=== PATIENT | male | born 1960 | race Caucasian/White ===

== ENCOUNTER 2018-03-10 13:53 | Inpatient (IN) | payer BC ==
[2018-03-10] MEDS ORDERED: Sodium Chloride 0.9% 10 ML Syringe FLUSH PRN (14:41)
[2018-03-10] MEDS: Sodium Chloride 0.9% 1,000 ML IV SCH ×2 (14:57→23:00)
--- NOTE | 2018-03-10 14:59 | EDM.PDOC ---
ED HPI GENERAL MEDICAL PROBLEM - General Chief Complaint: Lower Extremity Injury/Pain Stated Complaint: POSS LEFT LEG INFECTION-SENT BY CHENG Time Seen by Provider: 03/10/18 14:18 Source of Information: Reports: Patient, Provider History Limitations: Reports: No Limitations - History of Present Illness INITIAL COMMENTS - FREE TEXT/NARRATIVE: The patient presents with left leg cellulitis. He said he noticed some pain in his left knee a couple days ago and now he has erythema and some mild edema to the left leg. He denies injuring his leg. He does have an old scab to his left knee. He has no fever or chills. He says he has no appetite. His blood sugar was 262 at the clinic. He has type II diabetes. He has some nausea but no vomiting. Onset: Gradual Duration: Day(s): Location: Reports: Lower Extremity, Left (Leg) Quality: Reports: Sharp Severity: Moderate Improves with: Reports: Immobilization Worsens with: Reports: Movement Associated Symptoms: Reports: Nausea/Vomiting. Denies: Confusion, Chest Pain, Cough, Fever/Chills, Headaches, Shortness of Breath Left Knee Pain Score (Numeric/FACES): 0 - Related Data Allergies Allergy/AdvReac Type Severity Reaction Status Date / Time Iodinated Contrast- Oral and Allergy Hives Verified 03/10/18 14:21 IV Dye Home Meds: Home Meds Aspirin [Halfprin] 81 mg PO DAILY 03/10/18 [History] Canagliflozin [Invokana] 300 mg PO DAILY 03/10/18 [History] Hydrochlorothiazide 12.5 mg PO DAILY 03/10/18 [History] Insulin Aspart [Novolog] 25 unit SQ TID 03/10/18 [History] Lisinopril 40 mg PO DAILY 03/10/18 [History] amLODIPine Besylate [Amlodipine Besylate] 5 mg PO DAILY 03/10/18 [History] metFORMIN [Glucophage] 500 mg PO BID 03/10/18 [History] Past Medical History Endocrine/Metabolic History: Reports: Diabetes, Type II - Past Surgical History GI Surgical History: Reports: Cholecystectomy Social & Family History - Family History Family Medical History: Noncontributory - Tobacco Use Smoking Status *Q: Never Smoker - Recreational Drug Use Recreational Drug Use: No Review of Systems - Review of Systems Review Of Systems: See Below Constitutional: Reports: No Symptoms Eyes: Reports: No Symptoms Ears: Reports: No Symptoms Nose: Reports: No Symptoms Mouth/Throat: Reports: No Symptoms Respiratory: Reports: No Symptoms Cardiovascular: Reports: No Symptoms GI/Abdominal: Reports: Nausea. Denies: Abdominal Pain, Vomiting Genitourinary: Reports: No Symptoms Musculoskeletal: Reports: Other (erythema and some mild edema) Skin: Reports: No Symptoms Neurological: Reports: No Symptoms Psychiatric: Reports: No Symptoms ED EXAM, GENERAL - Physical Exam Exam: See Below Exam Limited By: No Limitations General Appearance: Alert, No Apparent Distress Ears: Normal External Exam Nose: Normal Inspection Head: Atraumatic, Normocephalic Neck: Normal Inspection Respiratory/Chest: No Respiratory Distress, Lungs Clear, Normal Breath Sounds Cardiovascular: Regular Rate, Rhythm, No Edema, No Murmur GI/Abdominal: Soft, Non-Tender, No Organomegaly, No Mass Back Exam: Normal Inspection Extremities: Other (Erythema to the left leg with some edema. Good pulses and sensation distally.) Neurological: Alert, Oriented, No Motor/Sensory Deficits Course - Vital Signs Last Recorded V/S: Last Vital Signs Temp 98.7 F 03/10/18 14:17 Pulse 116 H 03/10/18 14:17 Resp 19 03/10/18 14:17 BP 153/96 H 03/10/18 14:17 Pulse Ox 95 03/10/18 14:17 - Orders/Labs/Meds Orders: Active Orders 24 hr Category Date Time Status Peripheral IV Care [RC] . DIRECTED Care 03/10/18 14:41 Active CULTURE BLOOD [BC] Stat Lab 03/10/18 14:53 Received CULTURE BLOOD [BC] Stat Lab 03/10/18 15:05 Received Sodium Chloride 0.9% [Normal Saline] 1,000 ml Med 03/10/18 14:45 Active IV ASDIRECTED Sodium Chloride 0.9% [Saline Flush] Med 03/10/18 14:41 Active 10 ml FLUSH ASDIRECTED PRN Blood Culture x2 Reflex Set [OM.PC] Stat Oth 03/10/18 14:42 Ordered Peripheral IV Insertion Adult [OM.PC] Routine Oth 03/10/18 14:41 Ordered Medication Orders Sodium Chloride (Normal Saline) 1,000 mls @ 125 mls/hr IV ASDIRECTED HERBERT Last Admin: 03/10/18 14:57 Dose: 125 mls/hr Sodium Chloride (Saline Flush) 10 ml FLUSH ASDIRECTED PRN PRN Reason: Keep Vein Open Last Admin: 03/10/18 14:58 Dose: 10 ml Labs: Laboratory Tests 03/10/18 Range/Units 14:53 C-Reactive Protein 27.0 H* (<1.0) mg/dL Meds: Medications Generic Name Dose Route Start Last Admin Trade Name Freq PRN Reason Stop Dose Admin Sodium Chloride 1,000 mls @ 125 mls/hr 03/10/18 14:45 03/10/18 14:57 Normal Saline IV 125 mls/hr ASDIRECTED HERBERT Administration Sodium Chloride 10 ml 03/10/18 14:41 03/10/18 14:58 Saline Flush FLUSH 10 ml ASDIRECTED PRN Administration Keep Vein Open Discontinued Medications Generic Name Dose Route Start Last Admin Trade Name Freq PRN Reason Stop Dose Admin Vancomycin HCl 2 gm/ Sodium 250 mls @ 250 mls/hr 03/10/18 15:03 03/10/18 15: 27 Chloride IV 03/10/18 16:02 250 mls/hr ONETIME ONE Administration - Re-Assessments/Exams Free Text/Narrative Re-Assessment/Exam: 03/10/18 15:32 I ordered an IV NS 125mL/hr, blood cultures and vancomycin 2 grams IV. His WBC was 14.8. His blood sugar was elevated at 262. His Na was 136. His total bili was elevated to 2. I feel he needs to be admitted. I called Dr Rubi and he agreed to the admission. He only meets for observation at this time. Departure - Departure Time of Disposition: 16:05 Disposition: Refer to Observation Condition: Good Clinical Impression: Cellulitis of left leg - Discharge Information Referrals: Alex Vela MD [Primary Care Provider] - Forms: ED Department Discharge - My Orders Last 24 Hours: My Active Orders 03/10/18 14:41 Peripheral IV Care [RC] . DIRECTED Sodium Chloride 0.9% [Saline Flush] 10 ml FLUSH ASDIRECTED PRN Peripheral IV Insertion Adult [OM.PC] Routine 03/10/18 14:42 Blood Culture x2 Reflex Set [OM.PC] Stat 03/10/18 14:45 Sodium Chloride 0.9% [Normal Saline] 1,000 ml IV ASDIRECTED 03/10/18 14:53 CULTURE BLOOD [BC] Stat 03/10/18 15:05 CULTURE BLOOD [BC] Stat - Assessment/Plan Last 24 Hours: My Active Orders 03/10/18 14:41 Peripheral IV Care [RC] . DIRECTED Sodium Chloride 0.9% [Saline Flush] 10 ml FLUSH ASDIRECTED PRN Peripheral IV Insertion Adult [OM.PC] Routine 03/10/18 14:42 Blood Culture x2 Reflex Set [OM.PC] Stat 03/10/18 14:45 Sodium Chloride 0.9% [Normal Saline] 1,000 ml IV ASDIRECTED 03/10/18 14:53 CULTURE BLOOD [BC] Stat 03/10/18 15:05 CULTURE BLOOD [BC] Stat
[2018-03-10] MEDS ORDERED: 50% Dextrose in Water 50 ML Syringe IVPUSH PRN (17:04)
[2018-03-10] MEDS ORDERED: Metoprolol Tartrate 5 MG/5 ML SDV IVPUSH PRN (17:07)
[2018-03-10] MEDS ORDERED: hydrALAZINE 20 MG/ML SDV IVPUSH PRN (17:07)
[2018-03-10] MEDS ORDERED: LORazepam 2 MG/ML SDV IVPUSH PRN (17:07)
--- NOTE | 2018-03-10 17:08 | PCM.HP ---
<Elyse Bernal - Last Filed: 03/10/18 18:12> H&P History of Present Illness - General Date of Service: 03/10/18 Admit Problem/Dx: Admission Diagnosis/Problem Admission Diagnosis/Problem Cellulitis Source of Information: Patient, Old Records, Provider History Limitations: Reports: No Limitations - History of Present Illness Initial Comments - Free Text/Narative: This is a 57 yo male with past medical hx/o HTN, DM2 who comes in for left leg cellulitis. Pain is 10/10 with movement only. He reports no chills, headache, nausea, vomiting, diarrhea, chest pain, shortness of breath, or GI/ complaints. He currently has a fever of 101.5F. His symptoms slightly improved after receiving fluids and IV Vanco in the ED. His initial workup in the ED showed a CBC remarkable for WBC of 14.8 and blood glucose 262. His chemistry is remarkable for Na 136, Bilirubin 2, CRP 27. He is subsequently admitted to the medical floor for observation. He is a full code. His PCP is Dr. Alex Vela. Left Knee Pain Score (Numeric/FACES): 0 - Related Data Allergies/Adverse Reactions: Allergies Allergy/AdvReac Type Severity Reaction Status Date / Time Iodinated Contrast- Oral and Allergy Hives Verified 03/10/18 17:12 IV Dye Home Medications: Home Meds Aspirin [Halfprin] 81 mg PO DAILY 03/10/18 [History] Canagliflozin [Invokana] 300 mg PO ACBREAKFAST 03/10/18 [History] Hydrochlorothiazide 12.5 mg PO DAILY 03/10/18 [History] Insulin Aspart [Novolog Flexpen] 0 units SQ TIDMEALS 03/10/18 [History] Insulin Aspart [Novolog] 20 unit SQ TIDMEALS 03/10/18 [History] Insulin Glargine,Hum.Rec.Anlog [Toujeo Solostar] 70 units SQ DAILY 03/10/18 [ History] Lisinopril 40 mg PO DAILY 03/10/18 [History] amLODIPine Besylate [Amlodipine Besylate] 5 mg PO DAILY 03/10/18 [History] metFORMIN [Glucophage] 500 mg PO BID 03/10/18 [History] Past Medical History Endocrine/Metabolic History: Reports: Diabetes, Type II - Past Surgical History GI Surgical History: Reports: Cholecystectomy Social & Family History - Family History Family Medical History: Noncontributory - Tobacco Use Smoking Status *Q: Never Smoker - Recreational Drug Use Recreational Drug Use: No H&P Review of Systems - Review of Systems: Review Of Systems: See Below General: Reports: Fever. Denies: Chills HEENT: Reports: No Symptoms Pulmonary: Reports: No Symptoms. Denies: Shortness of Breath Cardiovascular: Reports: Edema (slight in left leg). Denies: Chest Pain, Palpitations Gastrointestinal: Reports: No Symptoms. Denies: Abdominal Pain, Diarrhea, Nausea, Vomiting Genitourinary: Reports: No Symptoms. Denies: Dysuria, Frequency, Burning, Pain Musculoskeletal: Reports: Leg Pain (Left leg 10/10, with movement only) Skin: Reports: No Symptoms Psychiatric: Reports: No Symptoms Neurological: Reports: No Symptoms Hematologic/Lymphatic: Reports: No Symptoms Immunologic: Reports: No Symptoms Exam - Exam Exam: See Below - Vital Signs Vital Signs: Last Vital Signs Temp 98.7 F 03/10/18 14:17 Pulse 116 H 03/10/18 14:17 Resp 19 03/10/18 14:17 BP 153/96 H 03/10/18 14:17 Pulse Ox 95 03/10/18 14:17 Weight: 94.347 kg - Exam General: Alert, Oriented, Cooperative, Mild Distress HEENT: PERRLA, Hearing Intact, Mucosa Moist & [place], Nares Patent, Normal Nasal Septum, Posterior Pharynx Clear, Conjunctiva Clear, EOMI, EACs Clear, TMs Clear Neck: Supple, Trachea Midline, 2 Lungs: Clear to Auscultation, Normal Respiratory Effort Cardiovascular: Regular Rate, Regular Rhythm GI/Abdominal Exam: Normal Bowel Sounds, Soft, Non-Tender, No Organomegaly, No Distention, No Abnormal Bruit, No Mass, Pelvis Stable (Male) Exam: Deferred Rectal (Males) Exam: Deferred Back Exam: Normal Inspection, Full Range of Motion, NT Extremities: Normal Range of Motion, No Pedal Edema, Normal Capillary Refill, Leg Pain (left), Increased Warmth, Redness, Other (Erythema, some edema in left leg) Peripheral Pulses: 2+: Posterior Tibial (L), Posterior Tibial (R), Dorsalis Pedis (L), Dorsalis Pedis (R) Skin: Warm, Dry, Intact, Rash, Wound (old scab on left knee) Neurological: Cranial Nerves Intact (grossly) Neuro Extensive - Mental Status: Alert, Oriented x3, Normal Mood/Affect, Normal Cognition Psychiatric: Alert, Normal Affect, Normal Mood - Patient Data Lab Results Last 24 hrs: Laboratory Results - last 24 hr 03/10/18 Range/Units 14:53 C-Reactive Protein 27.0 H* (<1.0) mg/dL - Problem List (1) DM type 2 (diabetes mellitus, type 2) SNOMED Code(s): 25337475 ICD Code: E11.9 - TYPE 2 DIABETES MELLITUS WITHOUT COMPLICATIONS Status: Chronic Priority: Medium Current Visit: Yes Qualifiers: Diabetes mellitus manager terminal insulin use: unspecified manager terminal insulin use status Diabetes mellitus complication status: with unspecified complications Qualified Code(s): E11.8 - Type 2 diabetes mellitus with unspecified complications (2) HTN (hypertension) SNOMED Code(s): 58978283 ICD Code: I10 - ESSENTIAL (PRIMARY) HYPERTENSION Status: Chronic Priority : Medium Current Visit: Yes Qualifiers: Hypertension type: unspecified Qualified Code(s): I10 - Essential (primary ) hypertension (3) Cellulitis of left leg SNOMED Code(s): 454367464 ICD Code: L03.116 - CELLULITIS OF LEFT LOWER LIMB Status: Acute Priority : High Current Visit: Yes Problem List Initiated/Reviewed/Updated: Yes Orders Last 24hrs: Active Orders 24 hr Category Date Time Status Patient Status [ADT] Routine ADT 03/10/18 16:38 Active Peripheral IV Care [RC] . DIRECTED Care 03/10/18 14:41 Active CULTURE BLOOD [BC] Stat Lab 03/10/18 14:53 Received CULTURE BLOOD [BC] Stat Lab 03/10/18 15:05 Received Sodium Chloride 0.9% [Normal Saline] 1,000 ml Med 03/10/18 14:45 Active IV ASDIRECTED Sodium Chloride 0.9% [Saline Flush] Med 03/10/18 14:41 Active 10 ml FLUSH ASDIRECTED PRN Blood Culture x2 Reflex Set [OM.PC] Stat Oth 03/10/18 14:42 Ordered Peripheral IV Insertion Adult [OM.PC] Routine Oth 03/10/18 14:41 Ordered Medication Orders Sodium Chloride (Normal Saline) 1,000 mls @ 125 mls/hr IV ASDIRECTED HERBERT Last Admin: 03/10/18 14:57 Dose: 125 mls/hr Sodium Chloride (Saline Flush) 10 ml FLUSH ASDIRECTED PRN PRN Reason: Keep Vein Open Last Admin: 03/10/18 14:58 Dose: 10 ml Assessment/Plan Comment:: I/P: Acute: Left leg Cellulitis -Temperature 101.5 F, Tachycardic at 118, 10/10 pain with movement -Vanco 2g IV given in ED -Continue Vancomycin 15mg/kg Q12 hours -Sepsis work up -IVF -Blood Cultures -Lactic Acid -MRSA-->pending -Monitor Chronic: HTN -Continue home Lisinopril 40, HCTZ 12.5, Amlodipine 5mg Q Daily DM2 -Monitor Glucose -Novolog QID each meal and bedtime -Continue home Metformin 500 BID, Toujeo, Novolog Plan: Transfered to [facility] for observation He remains stable and continues to improve clinically Other orders as indicated above Routine AM labs DVT Prophylaxis: Lovenox GI Prophylaxis: Pepcid Ambulated at tolerated Code Status: Full code; PCP: Dr. Alex Vela <Janiya Rubi - Last Filed: 03/10/18 19:34> H&P History of Present Illness - General Admit Problem/Dx: Admission Diagnosis/Problem Admission Diagnosis/Problem Cellulitis Exam - Vital Signs Vital Signs: Last Vital Signs Temp 38.1 C 03/10/18 18:02 Pulse 120 H 03/10/18 16:57 Resp 18 03/10/18 16:57 BP 141/82 H 03/10/18 16:57 Pulse Ox 96 03/10/18 16:57 - Patient Data Lab Results Last 24 hrs: Laboratory Results - last 24 hr 03/10/18 03/10/18 Range/Units 14:53 18:05 Lactic Acid 1.5 (0.4-2.0) mmol/L C-Reactive Protein 27.0 H* (<1.0) mg/dL Problem List Initiated/Reviewed/Updated: Yes Orders Last 24hrs: Active Orders 24 hr Category Date Time Status Patient Status [ADT] Routine ADT 03/10/18 16:38 Active Blood Glucose Check, Bedside [RC] QIDACANDBED Care 03/10/18 17:04 Active Cardiac Monitoring [RC] CONTINUOUS Care 03/10/18 18:06 Active Height and Weight [RC] DAILY Care 03/10/18 18:06 Active Intake and Output [RC] QSHIFT Care 03/10/18 18:06 Active Oxygen Therapy [RC] PRN Care 03/10/18 18:06 Active Peripheral IV Care [RC] . DIRECTED Care 03/10/18 14:41 Active RT Aerosol Therapy [RC] ASDIRECTED Care 03/10/18 18:07 Active Up With Assistance [RC] ASDIRECTED Care 03/10/18 18:06 Active Up ad [place] [RC] ASDIRECTED Care 03/10/18 18:06 Active VTE/DVT Education [RC] PER UNIT ROUTINE Care 03/10/18 18:06 Active Vital Signs [RC] Q4H Care 03/10/18 18:06 Active ADA Diabetic [[place] [employer] Diet] [DIET Diet 03/10/18 Dinner Active ] Heart Healthy Diet [DIET] Diet 03/10/18 Dinner Active A1C [GLYCOSYLATED HEMOGLOBIN,HGBA1C] [CHEM] AM Lab 03/11/18 05:11 Ordered BASIC METABOLIC PANEL,BMP [CHEM] AM Lab 03/11/18 05:11 Ordered BASIC METABOLIC PANEL,BMP [CHEM] AM Lab 03/12/18 05:11 Ordered BASIC METABOLIC PANEL,BMP [CHEM] AM Lab 03/13/18 05:11 Ordered BASIC METABOLIC PANEL,BMP [CHEM] AM Lab 03/14/18 05:11 Ordered CBC WITH AUTO DIFF [HEME] AM Lab 03/11/18 05:11 Ordered CBC WITH AUTO DIFF [HEME] AM Lab 03/12/18 05:11 Ordered CBC WITH AUTO DIFF [HEME] AM Lab 03/13/18 05:11 Ordered CBC WITH AUTO DIFF [HEME] AM Lab 03/14/18 05:11 Ordered CRP [C-REACTIVE PROTEIN] [CHEM] AM Lab 03/11/18 05:11 Ordered CRP [C-REACTIVE PROTEIN] [CHEM] AM Lab 03/12/18 05:11 Ordered CRP [C-REACTIVE PROTEIN] [CHEM] AM Lab 03/13/18 05:11 Ordered CRP [C-REACTIVE PROTEIN] [CHEM] AM Lab 03/14/18 05:11 Ordered CRP [C-REACTIVE PROTEIN] [CHEM] AM Lab 03/15/18 05:11 Ordered CULTURE BLOOD [BC] Stat Lab 03/10/18 14:53 Received CULTURE BLOOD [BC] Stat Lab 03/10/18 15:05 Received LIPID PANEL [CHEM] AM Lab 03/11/18 05:11 Ordered MAGNESIUM [CHEM] AM Lab 03/11/18 05:11 Ordered MAGNESIUM [CHEM] AM Lab 03/12/18 05:11 Ordered MAGNESIUM [CHEM] AM Lab 03/13/18 05:11 Ordered MAGNESIUM [CHEM] AM Lab 03/14/18 05:11 Ordered METH-RESIST S.AUR,MRSA BY PCR [MOLEC] Routine Lab 03/10/18 17:40 Ordered Acetaminophen [Tylenol] Med 03/10/18 17:41 Active 650 mg PO Q4H PRN Acetaminophen/HYDROcodone [[place] 325-5 MG] Med 03/10/18 17:41 Active 1 tab PO Q4H PRN Albuterol/Ipratropium [DuoNeb 3.0-0.5 MG/3 ML] Med 03/10/18 18:06 Active 3 ml NEB Q4H PRN Aspirin [Halfprin] Med 03/11/18 09:00 Pending 81 mg PO DAILY Bisacodyl [Dulcolax] Med 03/10/18 18:06 Active 5 mg PO DAILY PRN Canagliflozin [Invokana] Med 03/11/18 09:00 Pending 300 mg PO DAILY Dextrose 50% in Water Med 03/10/18 17:04 Active 50 ml IVPUSH ASDIRECTED PRN Docusate Sodium [Colace] Med 03/10/18 18:06 Active 100 mg PO BID PRN Docusate Sodium/Sennosides [Senna Plus] Med 03/10/18 18:06 Active 1 tab PO BID PRN Enoxaparin [Lovenox] Med 03/11/18 09:00 Pending 30 mg SUBCUT DAILY Famotidine [Pepcid] Med 03/11/18 09:00 Pending 20 mg PO BID HYDROmorphone [Dilaudid] Med 03/10/18 17:41 Active 0.25 mg IVPUSH Q2H PRN Hydrochlorothiazide Med 03/11/18 09:00 Pending 12.5 mg PO DAILY Insulin Aspart [NovoLOG] Med 03/10/18 21:00 Pending 25 unit SUBCUT TID Insulin Aspart [NovoLOG] Med 03/10/18 17:45 Active See Protocol SUBCUT QIDACANDBED Insulin Aspart [Novolog Flexpen] Med 03/11/18 07:00 Pending 20 units SQ TIDMEALS Insulin Glargine,Hum.Rec.Anlog [Toushankaro Solostar] Med 03/11/18 09:00 Pending 70 units SQ DAILY LORazepam [Ativan] Med 03/10/18 18:06 Active 1 mg IV Q6H PRN LORazepam [Ativan] Med 03/10/18 17:07 Active 2 mg IVPUSH Q4H PRN Lisinopril [Lisinopril] Med 03/11/18 09:00 Pending 40 mg PO DAILY Magnesium Rep Pharmacy to Dose [Pharmacy to Dose - Med 03/10/18 17:15 Pending Magnesium Replacement] 1 dose .XX ASDIRECTED Metoprolol Tartrate [Lopressor] Med 03/10/18 17:07 Active 5 mg IVPUSH Q4H PRN Ondansetron [Zofran ODT] Med 03/10/18 17:41 Active 4 mg PO Q4H PRN Ondansetron [Zofran] Med 03/10/18 18:06 Active 4 mg IV Q6H PRN Polyethylene Glycol 3350 [MiraLAX] Med 03/10/18 18:06 Active 17 gm PO DAILY PRN Potassium Rep Pharmacy to Dose [Pharmacy to Dose - Med 03/10/18 17:15 Pending Potassium Replacement] 1 dose .XX ASDIRECTED Promethazine [Phenergan] 12.5 mg Med 03/10/18 18:06 Active Sodium Chloride 0.9% [Normal Saline] 50 ml IV Q6H Sodium Chloride 0.9% [Normal Saline] 1,000 ml Med 03/10/18 14:45 Active IV ASDIRECTED Sodium Chloride 0.9% [Saline Flush] Med 03/10/18 14:41 Active 10 ml FLUSH ASDIRECTED PRN Temazepam [Restoril] Med 03/10/18 18:06 Active 15 mg PO BEDTIME PRN Vancomycin Pharmacy to Dose [Pharmacy to Dose - Med 03/10/18 17:15 Pending Vancomycin] 1 dose .XX ASDIRECTED amLODIPine [Norvasc] Med 03/11/18 09:00 Pending 5 mg PO DAILY hydrALAZINE [Apresoline] Med 03/10/18 17:07 Active 20 mg IVPUSH Q4H PRN metFORMIN [Glucophage] Med 03/10/18 21:00 Pending 500 mg PO BID Blood Culture x2 Reflex Set [OM.PC] Stat Oth 03/10/18 14:42 Ordered Peripheral IV Insertion Adult [OM.PC] Routine Oth 03/10/18 14:41 Ordered Resuscitation Status Routine Resus Stat 03/10/18 17:41 Ordered Medication Orders Acetaminophen (Tylenol) 650 mg PO Q4H PRN PRN Reason: Pain (Mild 1-3)/fever Last Admin: 03/10/18 18:02 Dose: 650 mg Hydrocodone Bitart/Acetaminophen ([place] 325-5 Mg) 1 tab PO Q4H PRN PRN Reason: Pain (moderate 4-6) Albuterol/Ipratropium (Duoneb 3.0-0.5 Mg/3 Ml) 3 ml NEB Q4H PRN PRN Reason: Shortness Of Breath/wheezing Amlodipine Besylate (Norvasc) 5 mg PO DAILY [facility] Aspirin (Halfprin) 81 mg PO DAILY [facility] Bisacodyl (Dulcolax) 5 mg PO DAILY PRN PRN Reason: Constipation Dextrose/Water (Dextrose 50% In Water) 50 ml IVPUSH ASDIRECTED PRN PRN Reason: Hypoglycemia Docusate Sodium (Colace) 100 mg PO BID PRN PRN Reason: Constipation Enoxaparin Sodium (Lovenox) 30 mg SUBCUT DAILY [facility] Famotidine (Pepcid) 20 mg PO BID [facility] Hydralazine HCl (Apresoline) 20 mg IVPUSH Q4H PRN PRN Reason: Hypertension Hydrochlorothiazide (Hydrochlorothiazide) 12.5 mg PO DAILY [facility] Hydromorphone HCl (Dilaudid) 0.25 mg IVPUSH Q2H PRN PRN Reason: Pain (severe 7-10) Sodium Chloride (Normal Saline) 1,000 mls @ 125 mls/hr IV ASDIRECTED [facility] Last Admin: 03/10/18 14:57 Dose: 125 mls/hr Promethazine HCl 12.5 mg/ (Sodium Chloride) 50.5 mls @ 100 mls/hr IV Q6H PRN PRN Reason: Nausea/Vomiting Insulin Aspart (Novolog) 25 unit SUBCUT TID [facility] Insulin Aspart (Novolog) 0 unit SUBCUT QIDACANDBED [facility]; Protocol Last Admin: 03/10/18 18:03 Dose: 2 units Lorazepam (Ativan) 2 mg IVPUSH Q4H PRN PRN Reason: Seizures Lorazepam (Ativan) 1 mg IV Q6H PRN PRN Reason: Anxiety Magnesium Sulfate (Pharmacy To Dose - Magnesium Replacement) 1 dose .XX ASDIRECTED [facility] Metformin HCl (Glucophage) 500 mg PO BID [facility] Metoprolol Tartrate (Lopressor) 5 mg IVPUSH Q4H PRN PRN Reason: Tachycardia Non-Formulary Medication (Canagliflozin [Invokana]) 300 mg PO DAILY [facility] Non-Formulary Medication (Lisinopril [Lisinopril]) 40 mg PO DAILY [facility] Non-Formulary Medication (Insulin Aspart [Novolog Flexpen]) 20 units SQ TIDMEALS [facility] Non-Formulary Medication (Insulin Glargine,Hum.Rec.Anlog [Toujeo Solostar]) 70 units SQ DAILY [facility] Ondansetron HCl (Zofran Odt) 4 mg PO Q4H PRN PRN Reason: nausea, able to take PO Ondansetron HCl (Zofran) 4 mg IV Q6H PRN PRN Reason: Nausea/Vomiting Polyethylene Glycol (Miralax) 17 gm PO DAILY PRN PRN Reason: Constipation Potassium Chloride (Pharmacy To Dose - Potassium Replacement) 1 dose .XX ASDIRECTED [facility] Senna/Docusate Sodium (Senna Plus) 1 tab PO BID PRN PRN Reason: Constipation Sodium Chloride (Saline Flush) 10 ml FLUSH ASDIRECTED PRN PRN Reason: Keep Vein Open Last Admin: 03/10/18 14:58 Dose: 10 ml Temazepam (Restoril) 15 mg PO BEDTIME PRN PRN Reason: Sleep Vancomycin HCl (Pharmacy To Dose - Vancomycin) 1 dose .XX ASDIRECTED [facility] Assessment/Plan Comment:: Patient meets criteria for sepsis 2/2 ssti/cellulitis. Goal: hemodynamic stability, A1C check, lipid panel and optimize glucose level.
[2018-03-10] MEDS ORDERED: Vancomycin 1 GM, Vancomycin 500 MG in Sodium Chloride 0.9% 500 ML IV ONE (17:14)
[2018-03-10] MEDS ORDERED: Acetaminophen/HYDROcodone 325-5 MG Tab PO PRN (17:41)
[2018-03-10] MEDS ORDERED: Ondansetron 4 MG Tab.DIS PO PRN (17:41)
[2018-03-10] MEDS ORDERED: HYDROmorphone 0.5 MG/0.5 ML SYRINGE IVPUSH PRN (17:41)
[2018-03-10] MEDS: Acetaminophen 325 MG Tab PO PRN (18:02)
[2018-03-10] MEDS: Insulin Aspart 100 Units/ML 3 ML Pen SUBCUT SCH ×2 (18:03→21:57)
[2018-03-10] MEDS ORDERED: Promethazine 12.5 MG in Sodium Chloride 0.9% 50 ML IV PRN (18:06)
[2018-03-10] MEDS ORDERED: Ondansetron 4 MG/2 ML SDV IV PRN (18:06)
[2018-03-10] MEDS ORDERED: Temazepam 15 MG Cap PO PRN (18:06)
[2018-03-10] MEDS ORDERED: Albuterol/Ipratropium 3.0-0.5 MG/3 ML Neb Soln NEB PRN (18:06)
[2018-03-10] MEDS ORDERED: Polyethylene Glycol 3350 Powder 17 GM Packet PO PRN (18:06)
[2018-03-10] MEDS ORDERED: LORazepam 2 MG/ML SDV IV PRN (18:06)
[2018-03-10] MEDS ORDERED: Docusate Sodium 100 MG Cap PO PRN (18:06)
[2018-03-10] MEDS ORDERED: Bisacodyl 5 MG Tab PO PRN (18:06)
[2018-03-10] MEDS ORDERED: Insulin Aspart 100 Units/ML 3 ML Pen SUBCUT SCH ×2 (21:00→22:00)
[2018-03-10] MEDS ORDERED: Vancomycin 500 MG SDV IV SCH (21:00)
[2018-03-11] MEDS: Acetaminophen 325 MG Tab PO PRN ×2 (00:50→21:39)
[2018-03-11] MEDS ORDERED: Vancomycin 1500 MG in Sodium Chloride 0.9% 500 ML IV SCH ×6 (02:00→09:00)
[2018-03-11] MEDS: metFORMIN 500 MG Tab PO SCH ×2 (06:25→16:56)
[2018-03-11] MEDS: Famotidine 20 MG Tab PO SCH ×2 (08:02→21:38)
[2018-03-11] MEDS: Hydrochlorothiazide 25 MG Tab PO SCH (08:02)
[2018-03-11] MEDS: amLODIPine 5 MG Tab PO SCH (08:03)
[2018-03-11] MEDS: Lisinopril 20 MG Tab PO SCH (08:03)
[2018-03-11] MEDS: Insulin Aspart 100 Units/ML 3 ML Pen SUBCUT SCH ×7 (08:04→21:41)
[2018-03-11] MEDS: Aspirin 81 MG Tab.EC PO SCH (08:04)
[2018-03-11] MEDS: Insulin Detemir 100 Units/ML 3 ML Pen SUBCUT SCH ×2 (08:05→21:41)
[2018-03-11] MEDS: Canagliflozin [Invokana] 300 MG PO SCH (08:11)
[2018-03-11] MEDS ORDERED: Vancomycin 500 MG SDV IV SCH (09:00)
[2018-03-11] MEDS ORDERED: Enoxaparin 40 MG/0.4 ML Syringe SUBCUT SCH (09:00)
[2018-03-11] MEDS ORDERED: Enoxaparin 30 MG/0.3 ML Syringe SUBCUT SCH (09:00)
[2018-03-11] MEDS: Vancomycin 1 GM, Vancomycin 250 MG in Sodium Chloride 0.9% 250 ML IV SCH ×2 (09:32→21:39)
--- NOTE | 2018-03-11 14:46 | PCM.PN ---
- General Info Date of Service: 03/11/18 Admission Dx/Problem (Free Text): Admission Diagnosis/Problem Admission Diagnosis/Problem Cellulitis Subjective Update: In to see Ed today. He is sitting up in bed. Overall he is doing quite well. He only complains of having 7/10 pain with movement, which is an improvement from yesterday's 08/06. He has been sleeping well. We talked about his A1C being high at 9.2 and the importance of controlling his sugars, especially for wound healing. He states he tends to be "bad on the weekends", but understands. Good appetite. Pain is controlled. No other symptoms at this time. Ambulating. Urinating. No concerns from nursing. Functional Status: Reports: Pain Controlled, Tolerating Diet, Ambulating, Urinating - Review of Systems General: Reports: Fever (Low grade, 100.4 now). Denies: Chills HEENT: Reports: No Symptoms Pulmonary: Reports: No Symptoms. Denies: Shortness of Breath Cardiovascular: Reports: Edema (slight in left leg). Denies: Chest Pain, Palpitations, Dyspnea on Exertion Gastrointestinal: Reports: No Symptoms. Denies: Abdominal Pain, Diarrhea, Nausea, Vomiting Genitourinary: Reports: No Symptoms. Denies: Dysuria, Frequency, Burning, Pain Musculoskeletal: Reports: Leg Pain (left leg 7/10 with movement only) Skin: Reports: No Symptoms Neurological: Reports: No Symptoms Psychiatric: Reports: No Symptoms - Patient Data Vitals - Most Recent: Last Vital Signs Temp 100.4 F 03/11/18 11:40 Pulse 101 H 03/11/18 11:40 Resp 16 03/11/18 11:40 BP 100/54 L 03/11/18 11:40 Pulse Ox 92 L 03/11/18 11:40 Weight - Most Recent: 189 lb 1.6 oz I&O - Last 24 Hours: Intake & Output 03/10/18 03/11/18 03/11/18 22:59 06:59 14:59 Intake Total 240 1971 120 Output Total 1825 Balance 240 146 120 Lab Results Last 24 Hours: Laboratory Results - last 24 hr 03/10/18 03/10/18 03/10/18 Range/Units 14:53 17:16 18:05 WBC (4.23-9.07) K/mm3 RBC (4.63-6.08) M/mm3 Hgb (13.7-17.5) gm/L Hct (40.1-51.0) % MCV (79.0-92.2) fl MCH (25.7-32.2) pg MCHC (32.2-35.5) g/dl RDW Std Deviation (35.1-43.9) fL Plt Count (163-337) K/mm3 MPV (9.4-12.3) fl Neut % (Auto) (34.0-67.9) % Lymph % (Auto) (21.8-53.1) % Winston % (Auto) (5.3-12.2) % Eos % (Auto) (0.8-7.0) Baso % (Auto) (0.1-1.2) % Neut # (Auto) (1.78-5.38) K/mm3 Lymph # (Auto) (1.32-3.57) K/mm3 Winston # (Auto) (0.30-0.82) K/mm3 Eos # (Auto) (0.04-0.54) K/mm3 Baso # (Auto) (0.01-0.08) K/mm3 Manual Slide Review Sodium (136-145) mEq/L Potassium (3.5-5.1) mEq/L Chloride (98-107) mEq/L Carbon Dioxide (21-32) mEq/L Anion Gap (5-15) BUN (7-18) mg/dL Creatinine (0.7-1.3) mg/dL Est Cr Clr Drug Dosing mL/min Estimated GFR (MDRD) (>60) mL/min BUN/Creatinine Ratio (14-18) Glucose (74-106) mg/dL POC Glucose 227 H (70-105) mg/dL Hemoglobin A1c (4.50-6.20) % Lactic Acid 1.5 (0.4-2.0) mmol/L Calcium (8.5-10.1) mg/dL Magnesium (1.8-2.4) mg/dl C-Reactive Protein 27.0 H* (<1.0) mg/dL Triglycerides (<150) mg/dL Cholesterol (<200) mg/dL LDL Cholesterol Direct (<100) mg/dL HDL Cholesterol (40-59) mg/dL MRSA (PCR) 03/10/18 03/10/18 03/11/18 Range/Units 18:05 21:19 06:01 WBC (4.23-9.07) K/mm3 RBC (4.63-6.08) M/mm3 Hgb (13.7-17.5) gm/L Hct (40.1-51.0) % MCV (79.0-92.2) fl MCH (25.7-32.2) pg MCHC (32.2-35.5) g/dl RDW Std Deviation (35.1-43.9) fL Plt Count (163-337) K/mm3 MPV (9.4-12.3) fl Neut % (Auto) (34.0-67.9) % Lymph % (Auto) (21.8-53.1) % Winston % (Auto) (5.3-12.2) % Eos % (Auto) (0.8-7.0) Baso % (Auto) (0.1-1.2) % Neut # (Auto) (1.78-5.38) K/mm3 Lymph # (Auto) (1.32-3.57) K/mm3 Winston # (Auto) (0.30-0.82) K/mm3 Eos # (Auto) (0.04-0.54) K/mm3 Baso # (Auto) (0.01-0.08) K/mm3 Manual Slide Review Sodium (136-145) mEq/L Potassium (3.5-5.1) mEq/L Chloride (98-107) mEq/L Carbon Dioxide (21-32) mEq/L Anion Gap (5-15) BUN (7-18) mg/dL Creatinine 1.0 (0.7-1.3) mg/dL Est Cr Clr Drug Dosing 79.54 mL/min Estimated GFR (MDRD) > 60 (>60) mL/min BUN/Creatinine Ratio (14-18) Glucose (74-106) mg/dL POC Glucose 281 H 225 H (70-105) mg/dL Hemoglobin A1c (4.50-6.20) % Lactic Acid (0.4-2.0) mmol/L Calcium (8.5-10.1) mg/dL Magnesium (1.8-2.4) mg/dl C-Reactive Protein (<1.0) mg/dL Triglycerides (<150) mg/dL Cholesterol (<200) mg/dL LDL Cholesterol Direct (<100) mg/dL HDL Cholesterol (40-59) mg/dL MRSA (PCR) 03/11/18 03/11/18 03/11/18 Range/Units 06:10 06:10 06:10 WBC 9.67 H (4.23-9.07) K/mm3 RBC 5.10 (4.63-6.08) M/mm3 Hgb 15.1 (13.7-17.5) gm/L Hct 43.6 (40.1-51.0) % MCV 85.5 (79.0-92.2) fl MCH 29.6 (25.7-32.2) pg MCHC 34.6 (32.2-35.5) g/dl RDW Std Deviation 40.4 (35.1-43.9) fL Plt Count 175 (163-337) K/mm3 MPV 9.6 (9.4-12.3) fl Neut % (Auto) 76.6 H (34.0-67.9) % Lymph % (Auto) 9.8 L (21.8-53.1) % Winston % (Auto) 12.9 H (5.3-12.2) % Eos % (Auto) 0.1 L (0.8-7.0) Baso % (Auto) 0.1 (0.1-1.2) % Neut # (Auto) 7.40 H (1.78-5.38) K/mm3 Lymph # (Auto) 0.95 L (1.32-3.57) K/mm3 Winston # (Auto) 1.25 H (0.30-0.82) K/mm3 Eos # (Auto) 0.01 L (0.04-0.54) K/mm3 Baso # (Auto) 0.01 (0.01-0.08) K/mm3 Manual Slide Review Abnormal smear Sodium 133 L (136-145) mEq/L Potassium 3.7 (3.5-5.1) mEq/L Chloride 98 (98-107) mEq/L Carbon Dioxide 26 (21-32) mEq/L Anion Gap 12.7 (5-15) BUN 22 H (7-18) mg/dL Creatinine 0.8 (0.7-1.3) mg/dL Est Cr Clr Drug Dosing 99.42 mL/min Estimated GFR (MDRD) > 60 (>60) mL/min BUN/Creatinine Ratio 27.5 H (14-18) Glucose 202 H (74-106) mg/dL POC Glucose (70-105) mg/dL Hemoglobin A1c 9.20 H (4.50-6.20) % Lactic Acid (0.4-2.0) mmol/L Calcium 8.4 L (8.5-10.1) mg/dL Magnesium 2.2 (1.8-2.4) mg/dl C-Reactive Protein 19.8 H* (<1.0) mg/dL Triglycerides 149 (<150) mg/dL Cholesterol 149 (<200) mg/dL LDL Cholesterol Direct 95 (<100) mg/dL HDL Cholesterol 24.0 L (40-59) mg/dL MRSA (PCR) 03/11/18 03/11/18 Range/Units 06:31 11:36 WBC (4.23-9.07) K/mm3 RBC (4.63-6.08) M/mm3 Hgb (13.7-17.5) gm/L Hct (40.1-51.0) % MCV (79.0-92.2) fl MCH (25.7-32.2) pg MCHC (32.2-35.5) g/dl RDW Std Deviation (35.1-43.9) fL Plt Count (163-337) K/mm3 MPV (9.4-12.3) fl Neut % (Auto) (34.0-67.9) % Lymph % (Auto) (21.8-53.1) % Winston % (Auto) (5.3-12.2) % Eos % (Auto) (0.8-7.0) Baso % (Auto) (0.1-1.2) % Neut # (Auto) (1.78-5.38) K/mm3 Lymph # (Auto) (1.32-3.57) K/mm3 Winston # (Auto) (0.30-0.82) K/mm3 Eos # (Auto) (0.04-0.54) K/mm3 Baso # (Auto) (0.01-0.08) K/mm3 Manual Slide Review Sodium (136-145) mEq/L Potassium (3.5-5.1) mEq/L Chloride (98-107) mEq/L Carbon Dioxide (21-32) mEq/L Anion Gap (5-15) BUN (7-18) mg/dL Creatinine (0.7-1.3) mg/dL Est Cr Clr Drug Dosing mL/min Estimated GFR (MDRD) (>60) mL/min BUN/Creatinine Ratio (14-18) Glucose (74-106) mg/dL POC Glucose 183 H (70-105) mg/dL Hemoglobin A1c (4.50-6.20) % Lactic Acid (0.4-2.0) mmol/L Calcium (8.5-10.1) mg/dL Magnesium (1.8-2.4) mg/dl C-Reactive Protein (<1.0) mg/dL Triglycerides (<150) mg/dL Cholesterol (<200) mg/dL LDL Cholesterol Direct (<100) mg/dL HDL Cholesterol (40-59) mg/dL MRSA (PCR) Negative Med Orders - Current: Current Medications Acetaminophen (Tylenol) 650 mg PO Q4H PRN PRN Reason: Pain (Mild 1-3)/fever Last Admin: 03/11/18 00:50 Dose: 650 mg Hydrocodone Bitart/Acetaminophen ([place] 325-5 Mg) 1 tab PO Q4H PRN PRN Reason: Pain (moderate 4-6) Albuterol/Ipratropium (Duoneb 3.0-0.5 Mg/3 Ml) 3 ml NEB Q4H PRN PRN Reason: Shortness Of Breath/wheezing Amlodipine Besylate (Norvasc) 5 mg PO DAILY [facility] Last Admin: 03/11/18 08:03 Dose: 5 mg Aspirin (Halfprin) 81 mg PO DAILY [facility] Last Admin: 03/11/18 08:04 Dose: 81 mg Bisacodyl (Dulcolax) 5 mg PO DAILY PRN PRN Reason: Constipation Dextrose/Water (Dextrose 50% In Water) 50 ml IVPUSH ASDIRECTED PRN PRN Reason: Hypoglycemia Docusate Sodium (Colace) 100 mg PO BID PRN PRN Reason: Constipation Enoxaparin Sodium (Lovenox) 40 mg SUBCUT DAILY [facility] Famotidine (Pepcid) 20 mg PO BID [facility] Last Admin: 03/11/18 08:02 Dose: 20 mg Hydralazine HCl (Apresoline) 20 mg IVPUSH Q4H PRN PRN Reason: Hypertension Hydrochlorothiazide (Hydrochlorothiazide) 12.5 mg PO DAILY [facility] Last Admin: 03/11/18 08:02 Dose: 12.5 mg Hydromorphone HCl (Dilaudid) 0.25 mg IVPUSH Q2H PRN PRN Reason: Pain (severe 7-10) Promethazine HCl 12.5 mg/ (Sodium Chloride) 50.5 mls @ 100 mls/hr IV Q6H PRN PRN Reason: Nausea/Vomiting Vancomycin HCl 1 gm/Vancomycin HCl 250 mg/ Sodium Chloride 250 mls @ 166.512 mls/hr IV Q12H [facility] Last Admin: 03/11/18 09:32 Dose: 166.512 mls/hr Insulin Aspart (Novolog) 20 unit SUBCUT TIDMEALS [facility] Last Admin: 03/11/18 11:56 Dose: 20 units Insulin Aspart (Novolog) 0 unit SUBCUT QIDACANDBED [facility]; Protocol Last Admin: 03/11/18 11:56 Dose: 1 units Insulin Detemir (Levemir) 35 unit SUBCUT BID [facility] Last Admin: 03/11/18 08:05 Dose: 35 units Lisinopril (Prinivil) 40 mg PO DAILY [facility] Last Admin: 03/11/18 08:03 Dose: 40 mg Lorazepam (Ativan) 2 mg IVPUSH Q4H PRN PRN Reason: Seizures Lorazepam (Ativan) 1 mg IV Q6H PRN PRN Reason: Anxiety Magnesium Sulfate (Pharmacy To Dose - Magnesium Replacement) 0 dose .XX ASDIRECTED PRN PRN Reason: RX TO WATCH MAG LEVELS Metformin HCl (Glucophage) 500 mg PO BIDMEALS [facility] Last Admin: 03/11/18 06:25 Dose: 500 mg Metoprolol Tartrate (Lopressor) 5 mg IVPUSH Q4H PRN PRN Reason: Tachycardia Ondansetron HCl (Zofran Odt) 4 mg PO Q4H PRN PRN Reason: nausea, able to take PO Ondansetron HCl (Zofran) 4 mg IV Q6H PRN PRN Reason: Nausea/Vomiting Canagliflozin [ (Invokana] 300 Mg) 0 each PO DAILY [facility] Last Admin: 03/11/18 08:11 Dose: Not Given Polyethylene Glycol (Miralax) 17 gm PO DAILY PRN PRN Reason: Constipation Potassium Chloride (Pharmacy To Dose - Potassium Replacement) 0 dose .XX ASDIRECTED PRN PRN Reason: RX TO WATCH K LEVELS Senna/Docusate Sodium (Senna Plus) 1 tab PO BID PRN PRN Reason: Constipation Sodium Chloride (Saline Flush) 10 ml FLUSH ASDIRECTED PRN PRN Reason: Keep Vein Open Last Admin: 03/10/18 14:58 Dose: 10 ml Temazepam (Restoril) 15 mg PO BEDTIME PRN PRN Reason: Sleep Vancomycin HCl (Pharmacy To Dose - Vancomycin) 0 dose .XX ASDIRECTED PRN PRN Reason: RX TO DOSE VANCOMYCIN Discontinued Medications Enoxaparin Sodium (Lovenox) 30 mg SUBCUT DAILY [facility] Last Admin: 03/11/18 08:04 Dose: 30 mg Enoxaparin Sodium (Lovenox) 40 mg SUBCUT DAILY [facility] Last Admin: 03/11/18 09:36 Dose: Not Given Sodium Chloride (Normal Saline) 1,000 mls @ 125 mls/hr IV ASDIRECTED [facility] Last Admin: 03/10/18 23:00 Dose: 125 mls/hr Vancomycin HCl 2 gm/ Sodium (Chloride) 250 mls @ 250 mls/hr IV ONETIME ONE Stop: 03/10/18 16:02 Last Admin: 03/10/18 15:27 Dose: 250 mls/hr Vancomycin HCl 1 gm/Vancomycin HCl 500 mg/ Sodium Chloride 500 mls @ 333.025 mls/hr IV Q12H [facility] Vancomycin HCl 1 gm/Vancomycin HCl 500 mg/ Sodium Chloride 500 mls @ 333.025 mls/hr IV Q12H [facility] Insulin Aspart (Novolog) 0 unit SUBCUT QIDACANDBED [facility]; Protocol Insulin Aspart (Novolog) 25 unit SUBCUT TID [facility] Vancomycin HCl (Vancomycin) 1,415.205 mg 15 mg/kg (1415.205 mg) IV Q12H [facility] - Exam Quality Assessment: DVT Prophylaxis General: Alert, Oriented, Cooperative, No Acute Distress HEENT: Pupils Equal, Pupils Reactive, EOMI, Mucous Membr. Moist/[place] Neck: Supple Lungs: Clear to Auscultation, Normal Respiratory Effort Cardiovascular: Regular Rate, Regular Rhythm GI/Abdominal Exam: Normal Bowel Sounds, Soft, Non-Tender, No Organomegaly, No Distention, No Abnormal Bruit, No Mass, Pelvis Stable (Male) Exam: Deferred Back Exam: Normal Inspection, Full Range of Motion Extremities: Normal Range of Motion, No Pedal Edema, Normal Capillary Refill, Leg Pain (left), Increased Warmth (improving), Redness (improving), Other ( Erythema, some edema in left leg- improving) Peripheral Pulses: 2+: Posterior Tibial (L), Posterior Tibial (R), Dorsalis Pedis (L), Dorsalis Pedis (R) Skin: Warm, Dry, Intact Wound/Incisions: Erythema Improving, Other (old scab on left knee) Neurological: No New Focal Deficit Psy/Mental Status: Alert, Normal Affect, Normal Mood - Problem List & Annotations (1) DM type 2 (diabetes mellitus, type 2) SNOMED Code(s): 99783648 Code(s): E11.9 - TYPE 2 DIABETES MELLITUS WITHOUT COMPLICATIONS Status: Chronic Priority: Medium Current Visit: Yes Qualifiers: Diabetes mellitus brake repairer insulin use: unspecified halfway insulin use status Diabetes mellitus complication status: with unspecified complications Qualified Code(s): E11.8 - Type 2 diabetes mellitus with unspecified complications (2) HTN (hypertension) SNOMED Code(s): 92844846 Code(s): I10 - ESSENTIAL (PRIMARY) HYPERTENSION Status: Chronic Priority : Medium Current Visit: Yes Qualifiers: Hypertension type: unspecified Qualified Code(s): I10 - Essential (primary ) hypertension (3) Cellulitis of left leg SNOMED Code(s): 106403221 Code(s): L03.116 - CELLULITIS OF LEFT LOWER LIMB Status: Acute Priority: High Current Visit: Yes - Problem List Review Problem List Initiated/Reviewed/Updated: Yes - My Orders Last 24 Hours: My Active Orders 03/10/18 17:41 Acetaminophen [Tylenol] 650 mg PO Q4H PRN Acetaminophen/HYDROcodone [[place] 325-5 MG] 1 tab PO Q4H PRN HYDROmorphone [Dilaudid] 0.25 mg IVPUSH Q2H PRN Ondansetron [Zofran ODT] 4 mg PO Q4H PRN Resuscitation Status Routine 05/14/18 Dinner ADA Diabetic [[place] [employer] Diet] [DIET] Heart Healthy Diet [DIET] 03/11/18 09:00 Famotidine [Pepcid] 20 mg PO BID - Plan Plan:: I/P: Acute: Left leg Cellulitis -Temperature 101.5 F, Tachycardic at 118, 10/10 pain with movement--> improvin.4 F, HR 101, Pain 7/10 -Vanco 2g IV given in ED -Continue Vancomycin 15mg/kg Q12 hours -Sepsis work up -IVF -WBC 9.67, Neut 76.6% -CRP 27-->19.8 -Blood Cultures--> pending -Lactic Acid--> 1.5 -MRSA--> negative -Monitor Chronic: HTN -Continue home Lisinopril 40, HCTZ 12.5, Amlodipine 5mg Q Daily DM2, uncontrolled -Monitor and optimize Glucose levels; tends to be in the 200's -Novolog QID each meal and bedtime -Continue home Metformin 500 BID, [place], Novolog -A1C check--> 9.2 -Lipid panel--> LDL 95, HDL 24 (L), Cholesterol 149, Triglycerides 149 -Encourage ambulation Plan: Transfered to medical floor today from observation 2/2 uncontrolled DM2 He remains stable and continues to improve clinically Other orders as indicated above Maintain Hemodynamic stability Routine AM labs DVT Prophylaxis: Lovenox GI Prophylaxis: Pepcid Ambulated as tolerated Code Status: Full code; PCP: Dr. Alex Vela
[2018-03-12] MEDS: Lisinopril 20 MG Tab PO SCH (08:04)
[2018-03-12] MEDS: Aspirin 81 MG Tab.EC PO SCH (08:04)
[2018-03-12] MEDS: amLODIPine 5 MG Tab PO SCH (08:04)
[2018-03-12] MEDS: Famotidine 20 MG Tab PO SCH ×2 (08:04→21:38)
[2018-03-12] MEDS: metFORMIN 500 MG Tab PO SCH ×2 (08:04→17:04)
[2018-03-12] MEDS: Enoxaparin 40 MG/0.4 ML Syringe SUBCUT SCH (08:05)
[2018-03-12] MEDS: Hydrochlorothiazide 25 MG Tab PO SCH (08:05)
[2018-03-12] MEDS: Vancomycin 1 GM, Vancomycin 250 MG in Sodium Chloride 0.9% 250 ML IV SCH (08:08)
[2018-03-12] MEDS: Insulin Aspart 100 Units/ML 3 ML Pen SUBCUT SCH ×7 (08:14→21:39)
[2018-03-12] MEDS: Insulin Detemir 100 Units/ML 3 ML Pen SUBCUT SCH ×2 (08:14→21:41)
[2018-03-12] MEDS: Canagliflozin [Invokana] 300 MG PO SCH (08:18)
[2018-03-12] MEDS: Potassium Chloride 20 MEQ Tab.ER PO SCH ×2 (09:35→11:49)
--- NOTE | 2018-03-12 11:56 | PCM.PN ---
- General Info Date of Service: 03/12/18 Admission Dx/Problem (Free Text): Admission Diagnosis/Problem Admission Diagnosis/Problem Cellulitis Subjective Update: In to see Ed today. He is sitting up in bed. Overall he is doing quite well. He complains of having 7/10 pain with movement, but states the pain is improving. He has been sleeping well. Good appetite. Pain is controlled. No other symptoms at this time. Ambulating- discussed that he needs to get up and walking around the unit for DVT prophylaxis and to help decrease his elevated sugars. Urinating. No concerns from nursing. Functional Status: Reports: Pain Controlled, Tolerating Diet, Ambulating, Urinating - Review of Systems General: Reports: No Symptoms. Denies: Fever, Chills HEENT: Reports: No Symptoms Pulmonary: Reports: No Symptoms. Denies: Shortness of Breath Cardiovascular: Reports: No Symptoms. Denies: Chest Pain, Palpitations Gastrointestinal: Reports: No Symptoms. Denies: Abdominal Pain, Diarrhea, Nausea, Vomiting Genitourinary: Reports: No Symptoms. Denies: Dysuria, Frequency, Burning, Pain Musculoskeletal: Reports: Leg Pain (left leg, 7/10 with movement only) Skin: Reports: Other (left leg erythema improving) Neurological: Reports: No Symptoms Psychiatric: Reports: No Symptoms - Patient Data Vitals - Most Recent: Last Vital Signs Temp 99.0 F 03/12/18 08:39 Pulse 91 03/12/18 08:39 Resp 19 03/12/18 08:39 BP 134/69 03/12/18 08:39 Pulse Ox 98 03/12/18 08:39 Weight - Most Recent: 192 lb 1.6 oz I&O - Last 24 Hours: Intake & Output 03/11/18 03/12/18 03/12/18 22:59 06:59 14:59 Intake Total 2490 600 120 Output Total 850 625 Balance 1640 -25 120 Lab Results Last 24 Hours: Laboratory Results - last 24 hr 03/11/18 03/11/18 03/12/18 Range/Units 16:38 20:45 06:05 WBC (4.23-9.07) K/mm3 RBC (4.63-6.08) M/mm3 Hgb (13.7-17.5) gm/L Hct (40.1-51.0) % MCV (79.0-92.2) fl MCH (25.7-32.2) pg MCHC (32.2-35.5) g/dl RDW Std Deviation (35.1-43.9) fL Plt Count (163-337) K/mm3 MPV (9.4-12.3) fl Neut % (Auto) (34.0-67.9) % Lymph % (Auto) (21.8-53.1) % [place] % (Auto) (5.3-12.2) % Eos % (Auto) (0.8-7.0) Baso % (Auto) (0.1-1.2) % Neut # (Auto) (1.78-5.38) K/mm3 Lymph # (Auto) (1.32-3.57) K/mm3 [place] # (Auto) (0.30-0.82) K/mm3 Eos # (Auto) (0.04-0.54) K/mm3 Baso # (Auto) (0.01-0.08) K/mm3 Manual Slide Review Sodium 135 L (136-145) mEq/L Potassium 3.0 L (3.5-5.1) mEq/L Chloride 100 (98-107) mEq/L Carbon Dioxide 28 (21-32) mEq/L Anion Gap 10.0 (5-15) BUN 25 H (7-18) mg/dL Creatinine 0.8 (0.7-1.3) mg/dL Est Cr Clr Drug Dosing 99.42 mL/min Estimated GFR (MDRD) > 60 (>60) mL/min BUN/Creatinine Ratio 31.3 H (14-18) Glucose 90 (74-106) mg/dL POC Glucose 144 H 106 H (70-105) mg/dL Calcium 8.3 L (8.5-10.1) mg/dL Magnesium 2.3 (1.8-2.4) mg/dl C-Reactive Protein 12.0 H* (<1.0) mg/dL 03/12/18 03/12/18 03/12/18 Range/Units 06:05 06:41 11:27 WBC 10.46 H (4.23-9.07) K/mm3 RBC 4.44 L (4.63-6.08) M/mm3 Hgb 13.0 L (13.7-17.5) gm/L Hct 37.9 L (40.1-51.0) % MCV 85.4 (79.0-92.2) fl MCH 29.3 (25.7-32.2) pg MCHC 34.3 (32.2-35.5) g/dl RDW Std Deviation 39.2 (35.1-43.9) fL Plt Count 186 (163-337) K/mm3 MPV 9.6 (9.4-12.3) fl Neut % (Auto) 64.8 (34.0-67.9) % Lymph % (Auto) 18.5 L (21.8-53.1) % [place] % (Auto) 15.1 H (5.3-12.2) % Eos % (Auto) 0.7 L (0.8-7.0) Baso % (Auto) 0.3 (0.1-1.2) % Neut # (Auto) 6.79 H (1.78-5.38) K/mm3 Lymph # (Auto) 1.93 (1.32-3.57) K/mm3 [place] # (Auto) 1.58 H (0.30-0.82) K/mm3 Eos # (Auto) 0.07 (0.04-0.54) K/mm3 Baso # (Auto) 0.03 (0.01-0.08) K/mm3 Manual Slide Review Normal smear Sodium (136-145) mEq/L Potassium (3.5-5.1) mEq/L Chloride (98-107) mEq/L Carbon Dioxide (21-32) mEq/L Anion Gap (5-15) BUN (7-18) mg/dL Creatinine (0.7-1.3) mg/dL Est Cr Clr Drug Dosing mL/min Estimated GFR (MDRD) (>60) mL/min BUN/Creatinine Ratio (14-18) Glucose (74-106) mg/dL POC Glucose 96 64 L (70-105) mg/dL Calcium (8.5-10.1) mg/dL Magnesium (1.8-2.4) mg/dl C-Reactive Protein (<1.0) mg/dL Eduardo Results Last 24 Hours: Microbiology 03/10/18 14:53 Aerobic Blood Culture - Preliminary Blood - Venous NO GROWTH AFTER 1 DAY Anaerobic Blood Culture - Preliminary NO GROWTH AFTER 1 DAY 03/10/18 15:05 Aerobic Blood Culture - Preliminary Blood - Venous - Lab Draw NO GROWTH AFTER 1 DAY Anaerobic Blood Culture - Preliminary NO GROWTH AFTER 1 DAY Med Orders - Current: Current Medications Acetaminophen (Tylenol) 650 mg PO Q4H PRN PRN Reason: Pain (Mild 1-3)/fever Last Admin: 03/11/18 21:39 Dose: 650 mg Hydrocodone Bitart/Acetaminophen ([place] 325-5 Mg) 1 tab PO Q4H PRN PRN Reason: Pain (moderate 4-6) Albuterol/Ipratropium (Duoneb 3.0-0.5 Mg/3 Ml) 3 ml NEB Q4H PRN PRN Reason: Shortness Of Breath/wheezing Amlodipine Besylate (Norvasc) 5 mg PO DAILY [facility] Last Admin: 03/12/18 08:04 Dose: 5 mg Aspirin (Halfprin) 81 mg PO DAILY [facility] Last Admin: 03/12/18 08:04 Dose: 81 mg Bisacodyl (Dulcolax) 5 mg PO DAILY PRN PRN Reason: Constipation Dextrose/Water (Dextrose 50% In Water) 50 ml IVPUSH ASDIRECTED PRN PRN Reason: Hypoglycemia Docusate Sodium (Colace) 100 mg PO BID PRN PRN Reason: Constipation Doxycycline Hyclate (Vibramycin) 100 mg PO BID [facility] Enoxaparin Sodium (Lovenox) 40 mg SUBCUT DAILY [facility] Last Admin: 03/12/18 08:05 Dose: 40 mg Famotidine (Pepcid) 20 mg PO BID [facility] Last Admin: 03/12/18 08:04 Dose: 20 mg Hydralazine HCl (Apresoline) 20 mg IVPUSH Q4H PRN PRN Reason: Hypertension Hydrochlorothiazide (Hydrochlorothiazide) 12.5 mg PO DAILY [facility] Last Admin: 03/12/18 08:05 Dose: 12.5 mg Hydromorphone HCl (Dilaudid) 0.25 mg IVPUSH Q2H PRN PRN Reason: Pain (severe 7-10) Promethazine HCl 12.5 mg/ (Sodium Chloride) 50.5 mls @ 100 mls/hr IV Q6H PRN PRN Reason: Nausea/Vomiting Insulin Aspart (Novolog) 20 unit SUBCUT TIDMEALS [facility] Last Admin: 03/12/18 08:14 Dose: 20 units Insulin Aspart (Novolog) 0 unit SUBCUT QIDACANDBED [facility]; Protocol Last Admin: 03/12/18 08:15 Dose: Not Given Insulin Detemir (Levemir) 35 unit SUBCUT BID [facility] Last Admin: 03/12/18 08:14 Dose: 35 units Lisinopril (Prinivil) 40 mg PO DAILY [facility] Last Admin: 03/12/18 08:04 Dose: 40 mg Lorazepam (Ativan) 2 mg IVPUSH Q4H PRN PRN Reason: Seizures Lorazepam (Ativan) 1 mg IV Q6H PRN PRN Reason: Anxiety Magnesium Sulfate (Pharmacy To Dose - Magnesium Replacement) 0 dose .XX ASDIRECTED PRN PRN Reason: RX TO WATCH MAG LEVELS Metformin HCl (Glucophage) 500 mg PO BIDDEALS [facility] Last Admin: 03/12/18 08:04 Dose: 500 mg Metoprolol Tartrate (Lopressor) 5 mg IVPUSH Q4H PRN PRN Reason: Tachycardia Ondansetron HCl (Zofran Odt) 4 mg PO Q4H PRN PRN Reason: nausea, able to take PO Ondansetron HCl (Zofran) 4 mg IV Q6H PRN PRN Reason: Nausea/Vomiting Canagliflozin [ (Invokana] 300 Mg) 0 each PO DAILY [facility] Last Admin: 03/12/18 08:18 Dose: Not Given Polyethylene Glycol (Miralax) 17 gm PO DAILY PRN PRN Reason: Constipation Potassium Chloride (Pharmacy To Dose - Potassium Replacement) 0 dose .XX ASDIRECTED PRN PRN Reason: RX TO WATCH K LEVELS Potassium Chloride (Klor-Con M20) 40 meq PO Q4H [facility] Stop: 03/12/18 12:46 Last Admin: 03/12/18 09:35 Dose: 40 meq Senna/Docusate Sodium (Senna Plus) 1 tab PO BID PRN PRN Reason: Constipation Sodium Chloride (Saline Flush) 10 ml FLUSH ASDIRECTED PRN PRN Reason: Keep Vein Open Last Admin: 03/10/18 14:58 Dose: 10 ml Temazepam (Restoril) 15 mg PO BEDTIME PRN PRN Reason: Sleep Discontinued Medications Enoxaparin Sodium (Lovenox) 30 mg SUBCUT DAILY [facility] Last Admin: 03/11/18 08:04 Dose: 30 mg Enoxaparin Sodium (Lovenox) 40 mg SUBCUT DAILY [facility] Last Admin: 03/11/18 09:36 Dose: Not Given Sodium Chloride (Normal Saline) 1,000 mls @ 125 mls/hr IV ASDIRECTED [facility] Last Admin: 03/10/18 23:00 Dose: 125 mls/hr Vancomycin HCl 2 gm/ Sodium (Chloride) 250 mls @ 250 mls/hr IV ONETIME ONE Stop: 03/10/18 16:02 Last Admin: 03/10/18 15:27 Dose: 250 mls/hr Vancomycin HCl 1 gm/Vancomycin HCl 500 mg/ Sodium Chloride 500 mls @ 333.025 mls/hr IV Q12H [facility] Vancomycin HCl 1 gm/Vancomycin HCl 500 mg/ Sodium Chloride 500 mls @ 333.025 mls/hr IV Q12H [facility] Vancomycin HCl 1 gm/Vancomycin HCl 250 mg/ Sodium Chloride 250 mls @ 166.512 mls/hr IV Q12H [facility] Last Admin: 03/12/18 08:08 Dose: 166.512 mls/hr Insulin Aspart (Novolog) 0 unit SUBCUT QIDACANDBED [facility]; Protocol Insulin Aspart (Novolog) 25 unit SUBCUT TID [facility] Vancomycin HCl (Vancomycin) 1,415.205 mg 15 mg/kg (1415.205 mg) IV Q12H [facility] Vancomycin HCl (Pharmacy To Dose - Vancomycin) 0 dose .XX ASDIRECTED PRN PRN Reason: RX TO DOSE VANCOMYCIN - Exam Quality Assessment: No: DVT Prophylaxis (refused medication and cannot put on JOSE or SCDs due to cellulitis) General: Alert, Oriented, Cooperative, No Acute Distress HEENT: Pupils Equal, Pupils Reactive, EOMI, Mucous Membr. Moist/[place] Neck: Supple Lungs: Clear to Auscultation, Normal Respiratory Effort Cardiovascular: Regular Rate, Regular Rhythm GI/Abdominal Exam: Normal Bowel Sounds, Soft, Non-Tender, No Organomegaly, No Distention, No Abnormal Bruit, No Mass, Pelvis Stable (Male) Exam: Deferred Back Exam: Normal Inspection, Full Range of Motion Extremities: Normal Range of Motion, Non-Tender, No Pedal Edema, Normal Capillary Refill, Leg Pain (left leg, 7/10 with movement only), Redness ( improving), Other (left leg erythema improving) Peripheral Pulses: 1+: Posterior Tibial (L), Posterior Tibial (R), Dorsalis Pedis (L), Dorsalis Pedis (R) Skin: Warm, Dry, Intact, Rash (improving) Wound/Incisions: Healing Well, Erythema Improving Neurological: No New Focal Deficit Psy/Mental Status: Alert, Normal Affect, Normal Mood - Problem List & Annotations (1) DM type 2 (diabetes mellitus, type 2) SNOMED Code(s): 55958337 Code(s): E11.9 - TYPE 2 DIABETES MELLITUS WITHOUT COMPLICATIONS Status: Chronic Priority: Medium Current Visit: Yes Qualifiers: Diabetes mellitus jail insulin use: unspecified superintendent terminal insulin use status Diabetes mellitus complication status: with unspecified complications Qualified Code(s): E11.8 - Type 2 diabetes mellitus with unspecified complications (2) HTN (hypertension) SNOMED Code(s): 76817176 Code(s): I10 - ESSENTIAL (PRIMARY) HYPERTENSION Status: Chronic Priority : Medium Current Visit: Yes Qualifiers: Hypertension type: unspecified Qualified Code(s): I10 - Essential (primary ) hypertension (3) Cellulitis of left leg SNOMED Code(s): 153198700 Code(s): L03.116 - CELLULITIS OF LEFT LOWER LIMB Status: Acute Priority: High Current Visit: Yes - Problem List Review Problem List Initiated/Reviewed/Updated: Yes - My Orders Last 24 Hours: My Active Orders 03/12/18 21:00 Doxycycline [Vibramycin] 100 mg PO BID - Plan Plan:: I/P: Acute: Left leg Cellulitis -Temp 101.5 F-->100.4-->99, HR 118-->101-->91, 10/10-->7/10 pain -Vanco 2g IV given in ED -Continue Vancomycin 15mg/kg Q12 hours--> D/C and start Doxy PO today -Sepsis work up -IVF -WBC 9.67-->10.46, Neut 76.6%-->64.8 -CRP 27-->19.8-->12 -Blood Cultures--> negative after 1 day -Lactic Acid--> 1.5 -MRSA--> negative -Monitor Chronic: HTN -Continue home Lisinopril 40, HCTZ 12.5, Amlodipine 5mg Q Daily DM2, uncontrolled -Monitor and optimize Glucose levels; tends to be in the 200's-->90 today -Novolog QID each meal and bedtime -Continue home Metformin 500 BID, [place], Novolog -A1C check--> 9.2 -Lipid panel--> LDL 95, HDL 24 (L), Cholesterol 149, Triglycerides 149 -Encourage ambulation Plan: Transfered to medical floor today from observation 2/2 uncontrolled DM2 He remains stable and continues to improve clinically Other orders as indicated above Maintain Hemodynamic stability Routine AM labs DVT Prophylaxis: Lovenox GI Prophylaxis: Pepcid Ambulated as tolerated Most likely D/C tomorrow pending clinical disposition Code Status: Full code; PCP: Dr. Alex Vela
[2018-03-12] MEDS: Doxycycline 100 MG Cap PO SCH (21:38)
[2018-03-12] MEDS ORDERED: Nicotine 21 MG/24 Hr Patch TRDERM SCH (23:00)
[2018-03-13] MEDS: Insulin Aspart 100 Units/ML 3 ML Pen SUBCUT SCH ×4 (07:04→11:23)
[2018-03-13] MEDS: Canagliflozin [Invokana] 300 MG PO SCH (08:06)
[2018-03-13] MEDS: Insulin Detemir 100 Units/ML 3 ML Pen SUBCUT SCH (08:07)
[2018-03-13] MEDS: Enoxaparin 40 MG/0.4 ML Syringe SUBCUT SCH (08:08)
[2018-03-13] MEDS: amLODIPine 5 MG Tab PO SCH (08:08)
[2018-03-13] MEDS: Aspirin 81 MG Tab.EC PO SCH (08:09)
[2018-03-13] MEDS: Hydrochlorothiazide 25 MG Tab PO SCH (08:09)
[2018-03-13] MEDS: Famotidine 20 MG Tab PO SCH (08:10)
[2018-03-13] MEDS: Lisinopril 20 MG Tab PO SCH (08:10)
[2018-03-13] MEDS: metFORMIN 500 MG Tab PO SCH (08:10)
[2018-03-13] MEDS: Doxycycline 100 MG Cap PO SCH (08:10)
[2018-03-13] MEDS: Potassium Chloride 20 MEQ Tab.ER PO SCH ×2 (08:11→11:24)
--- NOTE | 2018-03-13 11:53 | PCM.DCSUM1 ---
Discharge Summary - Hospital Course HPI Initial Comments: The patient presents with left leg cellulitis. He said he noticed some pain in his left knee a couple days ago and now he has erythema and some mild edema to the left leg. He denies injuring his leg. He does have an old scab to his left knee. He has no fever or chills. He says he has no appetite. His blood sugar was 262 at the clinic. He has type II diabetes. He has some nausea but no vomiting. - Discharge Data Discharge Date: 03/13/18 (ADMIT 03/11/18) Discharge Disposition: Home, Self-Care 01 Condition: Good - Discharge Diagnosis/Problem(s) (1) DM type 2 (diabetes mellitus, type 2) SNOMED Code(s): 81436231 ICD Code: E11.9 - TYPE 2 DIABETES MELLITUS WITHOUT COMPLICATIONS Status: Chronic Priority: Medium Current Visit: Yes Qualifiers: Diabetes mellitus long-term insulin use: unspecified long-term insulin use status Diabetes mellitus complication status: with unspecified complications Qualified Code(s): E11.8 - Type 2 diabetes mellitus with unspecified complications (2) HTN (hypertension) SNOMED Code(s): 82856572 ICD Code: I10 - ESSENTIAL (PRIMARY) HYPERTENSION Status: Chronic Priority : Medium Current Visit: Yes Qualifiers: Hypertension type: unspecified Qualified Code(s): I10 - Essential (primary ) hypertension (3) Cellulitis of left leg SNOMED Code(s): 420639747 ICD Code: L03.116 - CELLULITIS OF LEFT LOWER LIMB Status: Acute Priority : High Current Visit: Yes - Patient Summary/Data Operative Procedure(s) Performed: none Complications: none Consults: Consultations 03/11/18 11:21 Consult to Valve Mechanic [Consult to Diabetic Nurse Specialist] [CONS] Routine Labs Pending at D/C: none Recommended Follow-up Testing/Procedures: Follow up with PCP in 7-10 days Planned Operative Procedure(s) after DC: none Hospital Course: I/P: Acute: Left leg Cellulitis -Temp 101.5 F-->97.9, HR 118-->93, 08/06-->3/10 pain -Vanco 2g IV given in ED -Continue Vancomycin 15mg/kg Q12 hours--> D/C and start Doxy PO today -Sepsis work up -IVF -WBC 9.67-->10.46-->9.71, Neut 76.6%-->64.8-->71.1 -CRP 27-->19.8-->12-->7.2 -Blood Cultures--> negative -Lactic Acid--> 1.5 -MRSA--> negative -Monitor Chronic: HTN -Continue home Lisinopril 40, HCTZ 12.5, Amlodipine 5mg Q Daily DM2, uncontrolled -Monitor and optimize Glucose levels; tends to be in the 200's -Novolog QID each meal and bedtime -Continue home Metformin 500 BID, Toujeo, Novolog -A1C check--> 9.2 -Lipid panel--> LDL 95, HDL 24 (L), Cholesterol 149, Triglycerides 149 -Encourage ambulation Plan: Transfered to medical floor today from observation 2/2 uncontrolled DM2 He remains stable and continues to improve clinically Other orders as indicated above Maintain Hemodynamic stability Routine AM labs DVT Prophylaxis: Lovenox GI Prophylaxis: Pepcid Ambulated as tolerated D/C today Code Status: Full code; PCP: Dr. Alex Vela Ed has recovered quite well after being admitted for left leg cellulitis. He had multiple tests done, all of which were negative except for increased WBC and CRP due to the cellulitis. He should follow-up with his primary care provider in 7-10 days. He was discharged home on Doxycycline x7 days and Florastor for completion of treatment. His blood sugars were high and should be rechecked with his primary care provider. This can be worked up further by his PCP. He will be discharged home today. - Patient Instructions Diet: Diabetic Diet Activity: As Tolerated Driving: May Drive Today Showering/Bathing: May Shower Notify Provider of: Fever, Increased Pain, Swelling and Redness, Drainage - Discharge Plan Prescriptions/Med Rec: Doxycycline [Vibramycin] 100 mg PO BID 7 Days #14 cap Home Medications: Home Meds Canagliflozin [Invokana] 300 mg PO ACBREAKFAST 03/10/18 [History] Hydrochlorothiazide 12.5 mg PO DAILY 03/10/18 [History] Insulin Aspart [Novolog Flexpen] 20 unit SQ TIDMEALS 03/10/18 [History] Insulin Glargine,Hum.Rec.Anlog [Toujeo Solostar] 70 units SQ DAILY 03/10/18 [ History] Lisinopril 40 mg PO DAILY 03/10/18 [History] amLODIPine Besylate [Amlodipine Besylate] 5 mg PO DAILY 03/10/18 [History] metFORMIN [Glucophage] 500 mg PO BID 03/10/18 [History] Doxycycline [Vibramycin] 100 mg PO BID 7 Days #14 cap 03/13/18 [Rx] Patient Handouts: Cellulitis, Adult, [id number], Type 2 Diabetes Mellitus, Self Care, Adult, [id number], Hyperglycemia, [id number], Diabetes Mellitus and Skin Care Referrals: Alex Vela MD [Primary Care Provider] - (Ask about having a TDaP and pneumococcal vaccine.) - Discharge Summary/Plan Comment DC Time >30 min.: Yes (40) - General Info Date of Service: 03/13/18 Admission Dx/Problem (Free Text: Admission Diagnosis/Problem Admission Diagnosis/Problem Cellulitis Subjective Update: In to see Ed today. He is sitting up in bed. Overall he is doing quite well. He complains of only having 3/10 pain with movement, but states the pain is improving and his is ready to go home. He has been sleeping well. Good appetite. Pain is controlled. No other symptoms at this time. Ambulating- has been walking around the unit. Urinating. No concerns from nursing. He will be D/ C'd home today on a 7 day course of antibiotics. Functional Status: Reports: Pain Controlled, Tolerating Diet, Ambulating, Urinating - Review of Systems General: Reports: No Symptoms. Denies: Fever, Chills HEENT: Reports: No Symptoms Pulmonary: Reports: No Symptoms. Denies: Shortness of Breath Cardiovascular: Reports: No Symptoms. Denies: Chest Pain Gastrointestinal: Reports: No Symptoms. Denies: Abdominal Pain, Diarrhea, Nausea, Vomiting Genitourinary: Reports: No Symptoms. Denies: Dysuria, Frequency, Burning, Pain Musculoskeletal: Reports: Leg Pain (left leg 3/10 with movement only, improving) Skin: Reports: Rash, Other (left leg erythema improving) Neurological: Reports: No Symptoms Psychiatric: Reports: No Symptoms - Patient Data Vitals - Most Recent: Last Vital Signs Temp 97.9 F 03/13/18 08:42 Pulse 93 03/13/18 08:42 Resp 18 03/13/18 08:04 BP 150/85 H 03/13/18 08:42 Pulse Ox 96 03/13/18 08:42 Weight - Most Recent: 191 lb 1.6 oz I&O - Last 24 hours: Intake & Output 03/12/18 03/13/18 03/13/18 22:59 06:59 14:59 Intake Total 2590 800 120 Output Total 300 Balance 2290 800 120 Lab Results - Last 24 hrs: Laboratory Results - last 24 hr 03/12/18 03/12/18 03/12/18 Range/Units 12:13 17:02 17:32 WBC (4.23-9.07) K/mm3 RBC (4.63-6.08) M/mm3 Hgb (13.7-17.5) gm/L Hct (40.1-51.0) % MCV (79.0-92.2) fl MCH (25.7-32.2) pg MCHC (32.2-35.5) g/dl RDW Std Deviation (35.1-43.9) fL Plt Count (163-337) K/mm3 MPV (9.4-12.3) fl Neut % (Auto) (34.0-67.9) % Lymph % (Auto) (21.8-53.1) % [place] % (Auto) (5.3-12.2) % Eos % (Auto) (0.8-7.0) Baso % (Auto) (0.1-1.2) % Neut # (Auto) (1.78-5.38) K/mm3 Lymph # (Auto) (1.32-3.57) K/mm3 [place] # (Auto) (0.30-0.82) K/mm3 Eos # (Auto) (0.04-0.54) K/mm3 Baso # (Auto) (0.01-0.08) K/mm3 Sodium (136-145) mEq/L Potassium (3.5-5.1) mEq/L Chloride (98-107) mEq/L Carbon Dioxide (21-32) mEq/L Anion Gap (5-15) BUN (7-18) mg/dL Creatinine (0.7-1.3) mg/dL Est Cr Clr Drug Dosing mL/min Estimated GFR (MDRD) (>60) mL/min BUN/Creatinine Ratio (14-18) Glucose (74-106) mg/dL POC Glucose 93 179 H 158 H (70-105) mg/dL Calcium (8.5-10.1) mg/dL Magnesium (1.8-2.4) mg/dl C-Reactive Protein (<1.0) mg/dL Vancomycin Trough (10.0-20.0) 03/12/18 03/12/18 03/13/18 Range/Units 20:25 21:33 05:35 WBC (4.23-9.07) K/mm3 RBC (4.63-6.08) M/mm3 Hgb (13.7-17.5) gm/L Hct (40.1-51.0) % MCV (79.0-92.2) fl MCH (25.7-32.2) pg MCHC (32.2-35.5) g/dl RDW Std Deviation (35.1-43.9) fL Plt Count (163-337) K/mm3 MPV (9.4-12.3) fl Neut % (Auto) (34.0-67.9) % Lymph % (Auto) (21.8-53.1) % [place] % (Auto) (5.3-12.2) % Eos % (Auto) (0.8-7.0) Baso % (Auto) (0.1-1.2) % Neut # (Auto) (1.78-5.38) K/mm3 Lymph # (Auto) (1.32-3.57) K/mm3 [place] # (Auto) (0.30-0.82) K/mm3 Eos # (Auto) (0.04-0.54) K/mm3 Baso # (Auto) (0.01-0.08) K/mm3 Sodium 136 (136-145) mEq/L Potassium 3.4 L (3.5-5.1) mEq/L Chloride 100 (98-107) mEq/L Carbon Dioxide 29 (21-32) mEq/L Anion Gap 10.4 (5-15) BUN 14 (7-18) mg/dL Creatinine 0.7 (0.7-1.3) mg/dL Est Cr Clr Drug Dosing 113.63 mL/min Estimated GFR (MDRD) > 60 (>60) mL/min BUN/Creatinine Ratio 20.0 H (14-18) Glucose 126 H (74-106) mg/dL POC Glucose 185 H (70-105) mg/dL Calcium 8.7 (8.5-10.1) mg/dL Magnesium 1.9 (1.8-2.4) mg/dl C-Reactive Protein 7.2 H* (<1.0) mg/dL Vancomycin Trough 8.0 L (10.0-20.0) 03/13/18 03/13/18 Range/Units 05:35 10:57 WBC 9.71 H (4.23-9.07) K/mm3 RBC 4.50 L (4.63-6.08) M/mm3 Hgb 13.3 L (13.7-17.5) gm/L Hct 38.1 L (40.1-51.0) % MCV 84.7 (79.0-92.2) fl MCH 29.6 (25.7-32.2) pg MCHC 34.9 (32.2-35.5) g/dl RDW Std Deviation 38.9 (35.1-43.9) fL Plt Count 219 (163-337) K/mm3 MPV 9.6 (9.4-12.3) fl Neut % (Auto) 71.1 H (34.0-67.9) % Lymph % (Auto) 15.6 L (21.8-53.1) % [place] % (Auto) 11.7 (5.3-12.2) % Eos % (Auto) 0.9 (0.8-7.0) Baso % (Auto) 0.2 (0.1-1.2) % Neut # (Auto) 6.90 H (1.78-5.38) K/mm3 Lymph # (Auto) 1.51 (1.32-3.57) K/mm3 [place] # (Auto) 1.14 H (0.30-0.82) K/mm3 Eos # (Auto) 0.09 (0.04-0.54) K/mm3 Baso # (Auto) 0.02 (0.01-0.08) K/mm3 Sodium (136-145) mEq/L Potassium (3.5-5.1) mEq/L Chloride (98-107) mEq/L Carbon Dioxide (21-32) mEq/L Anion Gap (5-15) BUN (7-18) mg/dL Creatinine (0.7-1.3) mg/dL Est Cr Clr Drug Dosing mL/min Estimated GFR (MDRD) (>60) mL/min BUN/Creatinine Ratio (14-18) Glucose (74-106) mg/dL POC Glucose 87 (70-105) mg/dL Calcium (8.5-10.1) mg/dL Magnesium (1.8-2.4) mg/dl C-Reactive Protein (<1.0) mg/dL Vancomycin Trough (10.0-20.0) LANG Results - Last 24 hrs: Microbiology 03/10/18 14:53 Aerobic Blood Culture - Preliminary Blood - Venous NO GROWTH AFTER 2 DAYS Anaerobic Blood Culture - Preliminary NO GROWTH AFTER 2 DAYS 03/10/18 15:05 Aerobic Blood Culture - Preliminary Blood - Venous - Lab Draw NO GROWTH AFTER 2 DAYS Anaerobic Blood Culture - Preliminary NO GROWTH AFTER 2 DAYS Med Orders - Current: Current Medications Acetaminophen (Tylenol) 650 mg PO Q4H PRN PRN Reason: Pain (Mild 1-3)/fever Last Admin: 03/11/18 21:39 Dose: 650 mg Hydrocodone Bitart/Acetaminophen ([place] 325-5 Mg) 1 tab PO Q4H PRN PRN Reason: Pain (moderate 4-6) Albuterol/Ipratropium (Duoneb 3.0-0.5 Mg/3 Ml) 3 ml NEB Q4H PRN PRN Reason: Shortness Of Breath/wheezing Amlodipine Besylate (Norvasc) 5 mg PO DAILY [facility] Last Admin: 03/13/18 08:08 Dose: 5 mg Aspirin (Halfprin) 81 mg PO DAILY [facility] Last Admin: 03/13/18 08:09 Dose: 81 mg Bisacodyl (Dulcolax) 5 mg PO DAILY PRN PRN Reason: Constipation Dextrose/Water (Dextrose 50% In Water) 50 ml IVPUSH ASDIRECTED PRN PRN Reason: Hypoglycemia Docusate Sodium (Colace) 100 mg PO BID PRN PRN Reason: Constipation Doxycycline Hyclate (Vibramycin) 100 mg PO BID [facility] Last Admin: 03/13/18 08:10 Dose: 100 mg Enoxaparin Sodium (Lovenox) 40 mg SUBCUT DAILY [facility] Last Admin: 03/13/18 08:08 Dose: 40 mg Famotidine (Pepcid) 20 mg PO BID [facility] Last Admin: 03/13/18 08:10 Dose: 20 mg Hydralazine HCl (Apresoline) 20 mg IVPUSH Q4H PRN PRN Reason: Hypertension Hydrochlorothiazide (Hydrochlorothiazide) 12.5 mg PO DAILY [facility] Last Admin: 03/13/18 08:09 Dose: 12.5 mg Hydromorphone HCl (Dilaudid) 0.25 mg IVPUSH Q2H PRN PRN Reason: Pain (severe 7-10) Promethazine HCl 12.5 mg/ (Sodium Chloride) 50.5 mls @ 100 mls/hr IV Q6H PRN PRN Reason: Nausea/Vomiting Insulin Aspart (Novolog) 20 unit SUBCUT TIDMEALS [facility] Last Admin: 03/13/18 11:23 Dose: Not Given Insulin Aspart (Novolog) 0 unit SUBCUT QIDACANDBED [facility]; Protocol Last Admin: 03/13/18 11:09 Dose: Not Given Insulin Detemir (Levemir) 35 unit SUBCUT BID [facility] Last Admin: 03/13/18 08:07 Dose: 35 units Lisinopril (Prinivil) 40 mg PO DAILY [facility] Last Admin: 03/13/18 08:10 Dose: 40 mg Lorazepam (Ativan) 2 mg IVPUSH Q4H PRN PRN Reason: Seizures Lorazepam (Ativan) 1 mg IV Q6H PRN PRN Reason: Anxiety Magnesium Sulfate (Pharmacy To Dose - Magnesium Replacement) 0 dose .XX ASDIRECTED PRN PRN Reason: RX TO WATCH MAG LEVELS Metformin HCl (Glucophage) [facility] Last Admin: 03/13/18 08:10 Dose: 500 mg Metoprolol Tartrate (Lopressor) 5 mg IVPUSH Q4H PRN PRN Reason: Tachycardia Ondansetron HCl (Zofran Odt) 4 mg PO Q4H PRN PRN Reason: nausea, able to take PO Ondansetron HCl (Zofran) 4 mg IV Q6H PRN PRN Reason: Nausea/Vomiting Canagliflozin [ (Invokana] 300 Mg) 0 each PO DAILY [facility] Last Admin: 03/13/18 08:06 Dose: Not Given Polyethylene Glycol (Miralax) 17 gm PO DAILY PRN PRN Reason: Constipation Potassium Chloride (Pharmacy To Dose - Potassium Replacement) 0 dose .XX ASDIRECTED PRN PRN Reason: RX TO WATCH K LEVELS Potassium Chloride (Klor-Con M20) 40 meq PO Q4H [facility] Stop: 03/13/18 12:01 Last Admin: 03/13/18 11:24 Dose: 40 meq Senna/Docusate Sodium (Senna Plus) 1 tab PO BID PRN PRN Reason: Constipation Sodium Chloride (Saline Flush) 10 ml FLUSH ASDIRECTED PRN PRN Reason: Keep Vein Open Last Admin: 03/10/18 14:58 Dose: 10 ml Temazepam (Restoril) 15 mg PO BEDTIME PRN PRN Reason: Sleep Discontinued Medications Enoxaparin Sodium (Lovenox) 30 mg SUBCUT DAILY [facility] Last Admin: 03/11/18 08:04 Dose: 30 mg Enoxaparin Sodium (Lovenox) 40 mg SUBCUT DAILY [facility] Last Admin: 03/11/18 09:36 Dose: Not Given Sodium Chloride (Normal Saline) 1,000 mls @ 125 mls/hr IV ASDIRECTED [facility] Last Admin: 03/10/18 23:00 Dose: 125 mls/hr Vancomycin HCl 2 gm/ Sodium (Chloride) 250 mls @ 250 mls/hr IV ONETIME ONE Stop: 03/10/18 16:02 Last Admin: 03/10/18 15:27 Dose: 250 mls/hr Vancomycin HCl 1 gm/Vancomycin HCl 500 mg/ Sodium Chloride 500 mls @ 333.025 mls/hr IV Q12H [facility] Vancomycin HCl 1 gm/Vancomycin HCl 500 mg/ Sodium Chloride 500 mls @ 333.025 mls/hr IV Q12H [facility] Vancomycin HCl 1 gm/Vancomycin HCl 250 mg/ Sodium Chloride 250 mls @ 166.512 mls/hr IV Q12H [facility] Last Admin: 03/12/18 08:08 Dose: 166.512 mls/hr Insulin Aspart (Novolog) 0 unit SUBCUT QIDACANDBED [facility]; Protocol Insulin Aspart (Novolog) 25 unit SUBCUT TID [facility] Potassium Chloride (Klor-Con M20) 40 meq PO Q4H [facility] Stop: 05/16/18 12:46 Last Admin: 03/12/18 11:49 Dose: 40 meq Vancomycin HCl (Vancomycin) 1,415.205 mg 15 mg/kg (1415.205 mg) IV Q12H [facility] Vancomycin HCl (Pharmacy To Dose - Vancomycin) 0 dose .XX ASDIRECTED PRN PRN Reason: RX TO DOSE VANCOMYCIN - Exam General: Reports: Alert, Oriented, Cooperative, No Acute Distress HEENT: Reports: Pupils Equal, Pupils Reactive, EOMI, Mucous Membr. Moist/[place] Neck: Reports: Supple Lungs: Reports: Clear to Auscultation, Normal Respiratory Effort Cardiovascular: Reports: Regular Rate, Regular Rhythm GI/Abdominal Exam: Normal Bowel Sounds, Soft, Non-Tender, No Organomegaly, No Distention, No Abnormal Bruit, No Mass, Pelvis Stable (Male) Exam: Deferred Rectal (Males) Exam: Deferred Back Exam: Reports: Normal Inspection, Full Range of Motion Extremities: Normal Range of Motion, Non-Tender, No Pedal Edema, Normal Capillary Refill, Leg Pain (left 3/10 with movement only, improving), Redness ( decreasing). No: Increased Warmth Skin: Reports: Warm, Dry, Intact Wound/Incisions: Reports: Healing Well, Erythema Improving Neurological: Reports: No New Focal Deficit Psy/Mental Status: Reports: Alert, Normal Affect, Normal Mood
== END 2018-03-13 13:59 | disposition home or self-care (01) | DRG 383 ==
LOC: JD.ED 13:53 → JD.MS 16:38 → OBSVTOIN 03-11 11:20 → JD.MS 03-11 12:25
PROVIDERS: ADMIT Internal Medicine; ATTEND Internal Medicine
DX: L03.116 Cellulitis of left lower limb (principal); E11.65 Type 2 diabetes mellitus with hyperglycemia; I10 Essential (primary) hypertension; Z79.4 Long term (current) use of insulin; Z91.041 Radiographic dye allergy status; Z79.82 Long term (current) use of aspirin; Z79.899 Other long term (current) drug therapy
CPT/HCPCS: 36415; 80048; 80061; 80202; 82565; 82962; 83036; 83605; 83735; 85025; 86140; 87040; 87641; 96361; 96365; 99285-25; A9270; A9270-GY; J1650; J1815-GY; J3370; J7040; J7050

== ENCOUNTER 2022-04-19 09:29 | Day surgery (SDC) | payer OTHER ==
[~2022-04-19 09:29] MED LIST: Cefuroxime 10 MG/ML SYRINGE EYERT SCH; Lidocaine 1% PF 2 ML SDV INJECT SCH; Pilocarpine 4% Ophth Soln 15 ML Bot EYERT SCH
[2022-04-19] MEDS: Polymyxin B/Trimethoprim 10 ML Bottle EYERT SCH ×3 (10:15→11:53)
[2022-04-19] MEDS: Brimonidine 0.2% Ophth Soln 5 ML Bottle EYERT SCH ×3 (10:20→11:53)
[2022-04-19] MEDS: Phenylephrine 2.5% Ophth Soln 2 ML Bot EYERT SCH ×5 (10:25→11:37)
[2022-04-19] MEDS: Tropicamide 1% Ophth Soln 15 ML Bottle EYERT SCH ×4 (10:30→11:10)
[2022-04-19] MEDS: Tetracaine HCl/PF 0.5% 4 ML Bottle EYEBOTH SCH ×4 (11:34→11:41)
== END 2022-04-19 12:05 | disposition home or self-care (01) ==
LOC: JD.SDS 09:29
PROVIDERS: ATTEND Ophthalmology
DX: E10.36 Type 1 diabetes mellitus with diabetic cataract (principal); H25.813 Combined forms of age-related cataract, bilateral; H21.541 Posterior synechiae (iris), right eye; H21.81 Floppy iris syndrome; E10.3293 Type 1 diabetes mellitus with mild nonproliferative diabetic retinopathy without macular edema, bilateral; H35.363 Drusen (degenerative) of macula, bilateral; H35.3131 Nonexudative age-related macular degeneration, bilateral, early dry stage; H16.103 Unspecified superficial keratitis, bilateral; H16.223 Keratoconjunctivitis sicca, not specified as Sjogren's, bilateral; I10 Essential (primary) hypertension; Z79.899 Other long term (current) drug therapy; Z91.041 Radiographic dye allergy status
CPT/HCPCS: J0697

== ENCOUNTER → 2022-05-17 | Day surgery (SDC) | payer OTHER ==
[~2022-05-17] MED LIST changes: +Brimonidine 0.2% Ophth Soln 5 ML Bottle EYELF SCH; +Cefuroxime 10 MG/ML SYRINGE EYELF SCH; -Cefuroxime 10 MG/ML SYRINGE EYERT SCH; +Pilocarpine 4% Ophth Soln 15 ML Bot EYELF SCH; -Pilocarpine 4% Ophth Soln 15 ML Bot EYERT SCH; +Polymyxin B/Trimethoprim 10 ML Bottle EYELF SCH; +Tetracaine HCl/PF 0.5% 4 ML Bottle EYEBOTH SCH
[2022-05-17] MEDS: Phenylephrine 2.5% Ophth Soln 2 ML Bot EYELF SCH ×2 (08:17→08:26)
[2022-05-17] MEDS: Tropicamide 1% Ophth Soln 15 ML Bottle EYELF SCH ×2 (08:21→08:36)
== END ==
LOC: JD.SDS 08:17
PROVIDERS: ATTEND Ophthalmology
DX: E11.36 Type 2 diabetes mellitus with diabetic cataract (principal); H26.9 Unspecified cataract; I10 Essential (primary) hypertension; Z79.84 Long term (current) use of oral hypoglycemic drugs; Z79.02 Long term (current) use of antithrombotics/antiplatelets; Z79.4 Long term (current) use of insulin; Z90.49 Acquired absence of other specified parts of digestive tract; Z53.29 Procedure and treatment not carried out because of patient's decision for other reasons

== ENCOUNTER 2022-05-26 13:54 | Emergency (ER) | payer OTHER ==
[2022-05-26] MEDS ORDERED: Lactated Ringers 1,000 ML IV SCH (14:15)
[2022-05-26 15:02] LABS: ESTIMATED GFR 96 mL/min (>60)
[2022-05-26 17:55] LABS: HEMOGLOBIN A1C 12.2 %
== END 2022-05-26 18:13 | disposition home or self-care (01) ==
LOC: SUPCPDRO 13:54 → JD.ED 13:54
DX: I95.1 Orthostatic hypotension (principal); E11.8 Type 2 diabetes mellitus with unspecified complications; E78.00 Pure hypercholesterolemia, unspecified; Z91.041 Radiographic dye allergy status; Z79.4 Long term (current) use of insulin; Z79.899 Other long term (current) drug therapy
CPT/HCPCS: 36415; 71045; 80053; 81001; 82550; 83036; 83735; 83880; 84484; 85025; 85379; 85610; 85730; 86140; 93005; 96360; 99284; J7120

== ENCOUNTER 2022-07-19 08:58 | Day surgery (SDC) | payer OTHER ==
[2022-07-19] MEDS: Polymyxin B/Trimethoprim 10 ML Bottle EYELF SCH ×3 (08:56→10:51)
[~2022-07-19 08:58] MED LIST changes: -Brimonidine 0.2% Ophth Soln 5 ML Bottle EYELF SCH; -Polymyxin B/Trimethoprim 10 ML Bottle EYELF SCH; -Tetracaine HCl/PF 0.5% 4 ML Bottle EYEBOTH SCH
[2022-07-19] MEDS: Brimonidine 0.2% Ophth Soln 5 ML Bottle EYELF SCH ×3 (09:01→10:51)
[2022-07-19] MEDS: Phenylephrine 2.5% Ophth Soln 2 ML Bot EYELF SCH ×5 (09:05→10:30)
[2022-07-19] MEDS: Tropicamide 1% Ophth Soln 15 ML Bottle EYELF SCH ×4 (09:10→10:03)
[2022-07-19] MEDS: Tetracaine HCl/PF 0.5% 4 ML Bottle EYEBOTH SCH ×4 (10:15→10:39)
== END 2022-07-19 11:03 | disposition home or self-care (01) ==
LOC: JD.SDS 08:58
PROVIDERS: ATTEND Ophthalmology
DX: E11.36 Type 2 diabetes mellitus with diabetic cataract (principal); H25.812 Combined forms of age-related cataract, left eye; H21.81 Floppy iris syndrome; H21.42 Pupillary membranes, left eye; E78.00 Pure hypercholesterolemia, unspecified; I10 Essential (primary) hypertension; Z90.49 Acquired absence of other specified parts of digestive tract; Z98.890 Other specified postprocedural states; Z91.041 Radiographic dye allergy status; Z79.4 Long term (current) use of insulin
CPT/HCPCS: 66982; C1780; J0697

== ENCOUNTER 2022-08-31 08:23 | Emergency (ER) | payer OTHER ==
[2022-08-31] MEDS ORDERED: Sodium Chloride 0.9% 1,000 ML IV SCH (09:45)
[2022-08-31 10:36] LABS: HEMOGLOBIN A1C 10.5 %
[2022-08-31 10:53] LABS: ESTIMATED GFR 104 mL/min (>60)
[2022-08-31] MEDS ORDERED: Gadobenate Dimeglumine 529 MG/ML 15 ML SDV IVPUSH ONE (11:32)
[2022-08-31] MEDS ORDERED: Sodium Chloride 0.9% 10 ML Syringe FLUSH SCH (11:45)
== END 2022-08-31 14:15 | disposition home or self-care (01) ==
LOC: JD.ED 08:23
DX: H53.2 Diplopia (principal); E11.9 Type 2 diabetes mellitus without complications; H49.02 Third [oculomotor] nerve palsy, left eye; I10 Essential (primary) hypertension; E78.00 Pure hypercholesterolemia, unspecified; Z91.041 Radiographic dye allergy status; Z79.4 Long term (current) use of insulin; Z79.899 Other long term (current) drug therapy
CPT/HCPCS: 36415; 70543; 70553; 71045; 80053; 80307; 81001; 83036; 83735; 83880; 85025; 85610; 85730; 86140; 93005; 96361; 96374; 99285; A9577; J3490; J7030

== ENCOUNTER 2023-09-15 15:20 | Inpatient (IN) | payer OTHER ==
[2023-09-15 15:39] LABS: BASOPHILS PERCENT AUTO 0.3 % (0.0-1.0); EOSINOPHILS ABSOLUTE AUTO 0.1 K/mm3 (0.0-0.4); EOSINOPHILS PERCENT AUTO 0.5 % (0.0-6.0); HEMATOCRIT 36.5 % (42.0-52.0); HEMOGLOBIN 13.3 gm/dl (14.0-18.0); IMMATURE GRAN ABSOLUTE AUTO 0.03 K/mm3 (0.00-0.05); IMMATURE GRAN PERCENT AUTO 0.3 % (0.0-0.4); LYMPHOCYTES ABSOLUTE AUTO 2.9 K/mm3 (1.0-4.8); LYMPHOCYTES PERCENT AUTO 24.7 % (24.0-44.0); MEAN CORPUSCULAR HEMOGLOBIN 30.4 pg (28.0-32.0); MEAN CORPUSCULAR HGB CONC 36.4 g/dl (32.0-36.0); MEAN CORPUSCULAR VOLUME 83.3 fl (83.0-99.0); MEAN PLATELET VOLUME 9.2 fl (9.4-12.4); MONOCYTES ABSOLUTE AUTO 0.8 K/mm3 (0.0-0.8); MONOCYTES PERCENT AUTO 6.9 % (0.0-8.0); NEUTROPHILS PERCENT AUTO 67.3 % (41.0-71.0); PLATELET COUNT,PLT 226 K/mm3 (150-400); RED BLOOD CELL COUNT 4.38 M/mm3 (4.52-5.90); WHITE BLOOD CELL COUNT,WBC 11.81 K/mm3 (3.9-11.3)
[2023-09-15 15:59] LABS: ALBUMIN 3.6 g/dl (3.4-5.0); BILIRUBIN TOTAL 0.5 mg/dL (0.2-1.0); BUN/CREATININE RATIO 12.5 (14-18); CALCIUM 9.4 mg/dL (8.5-10.1); CREATININE 1.6 mg/dL (0.7-1.3); EST CRCL DRUG DOSING (CG) 45.13 mL/min; PROTEIN TOTAL,TP 7.1 g/dl (6.4-8.2)
[2023-09-15] MEDS ORDERED: Potassium Chloride 20 MEQ Tab.ER PO ONE (16:14)
[2023-09-15] MEDS ORDERED: Lactated Ringers 1,000 ML IV SCH (16:15)
[2023-09-15 16:48] LABS: APPEARANCE,URINE CLEAR (Clear); BILIRUBIN,URINE NEGATIVE (Negative); COLOR,URINE YELLOW (Yellow); GLUCOSE,URINE TRACE (Negative); KETONES,URINE TRACE (Negative); LEUKOCYTE ESTERASE,URINE NEGATIVE (Negative); NITRITE,URINE NEGATIVE (Negative); OCCULT BLOOD,URINE TRACE-INTACT (Negative); PH,URINE 5.5 (5.0-8.0); PROTEIN,URINE 3+ (Negative); UROBILINOGEN,URINE 0.2 (0.2-1.0)
[2023-09-15 17:04] LABS: SQUAMOUS EPITHELIAL CELLS,UR 0-5 /hpf (0-5); WBC,URINE 0-5 /hpf (0-5)
[2023-09-15 17:05] LABS: BACTERIA,URINE MODERATE /hpf (FEW); COARSE GRANULAR CASTS,URINE 0-5 /hpf (0-5); FINE GRANULAR CASTS,URINE 0-5 /lpf (0-5); MUCUS,URINE MODERATE /hpf (FEW)
[2023-09-15] MEDS ORDERED: Ondansetron 4 MG Tab.DIS PO PRN (17:13)
[2023-09-15] MEDS ORDERED: Acetaminophen 325 MG Tab PO PRN (17:13)
[2023-09-15] MEDS ORDERED: oxyCODONE 5 MG Tab PO PRN (17:13)
[2023-09-15 17:38] LABS: HEMOGLOBIN A1C 7.9 %
[2023-09-15] MEDS ORDERED: Insulin Regular, Human 100 Units/ML 3 ML Vial SUBCUT SCH (19:00)
[2023-09-15] MEDS: Heparin Sodium 5,000 Units/ML Vial SUBCUT SCH (20:41)
[2023-09-15] MEDS: Sodium Chloride 0.9% 1,000 ML IV SCH (20:59)
[2023-09-16] MEDS: Heparin Sodium 5,000 Units/ML Vial SUBCUT SCH ×3 (01:48→17:46)
[2023-09-16 05:55] LABS: BASOPHILS ABSOLUTE AUTO 0.1 K/mm3 (0.0-0.2); BASOPHILS PERCENT AUTO 0.5 % (0.0-1.0); EOSINOPHILS ABSOLUTE AUTO 0.1 K/mm3 (0.0-0.4); EOSINOPHILS PERCENT AUTO 1.2 % (0.0-6.0); HEMATOCRIT 35.1 % (42.0-52.0); HEMOGLOBIN 12.6 gm/dl (14.0-18.0); IMMATURE GRAN ABSOLUTE AUTO 0.03 K/mm3 (0.00-0.05); IMMATURE GRAN PERCENT AUTO 0.3 % (0.0-0.4); LYMPHOCYTES ABSOLUTE AUTO 3.4 K/mm3 (1.0-4.8); LYMPHOCYTES PERCENT AUTO 36.4 % (24.0-44.0); MEAN CORPUSCULAR HEMOGLOBIN 30.1 pg (28.0-32.0); MEAN CORPUSCULAR HGB CONC 35.9 g/dl (32.0-36.0); MEAN PLATELET VOLUME 9.8 fl (9.4-12.4); MONOCYTES ABSOLUTE AUTO 0.7 K/mm3 (0.0-0.8); MONOCYTES PERCENT AUTO 7.8 % (0.0-8.0); NEUTROPHILS ABSOLUTE AUTO 5.1 K/mm3 (1.8-7.7); NEUTROPHILS PERCENT AUTO 53.8 % (41.0-71.0); PLATELET COUNT,PLT 198 K/mm3 (150-400); RED BLOOD CELL COUNT 4.18 M/mm3 (4.52-5.90)
[2023-09-16 06:22] LABS: A/G RATIO 0.9 (1-2); ALBUMIN 3.1 g/dl (3.4-5.0); ANION GAP 10.1 (5-15); BILIRUBIN TOTAL 0.6 mg/dL (0.2-1.0); CALCIUM 8.8 mg/dL (8.5-10.1); EST CRCL DRUG DOSING (CG) 72.2 mL/min; MAGNESIUM 1.6 mg/dL (1.8-2.4); POTASSIUM,K 3.1 mEq/L (3.5-5.1); PROTEIN TOTAL,TP 6.5 g/dl (6.4-8.2)
[2023-09-16] MEDS: Sodium Chloride 0.9% 1,000 ML IV SCH (08:58)
[2023-09-16] MEDS: Potassium Chloride 20 MEQ Tab.ER PO SCH ×2 (08:59→21:44)
[2023-09-16] MEDS ORDERED: Magnesium Sulfate/Water 2 GM in Premix Bag 1 BAG IV ONE (09:00)
[2023-09-16 11:02] LABS: CHOLESTEROL HDL 29 mg/dL (40-59); CHOLESTEROL LDL DIRECT 93 mg/dL (<100); CHOLESTEROL TOTAL 154 mg/dL (<200); TRIGLYCERIDES 147 mg/dL (<150)
[2023-09-16] MEDS: Insulin Regular, Human 100 Units/ML 3 ML Vial SUBCUT SCH ×3 (12:00→21:45)
[2023-09-16] MEDS: Clopidogrel 75 MG Tab PO SCH (16:43)
[2023-09-16] MEDS: cloNIDine 0.1 MG Tab PO SCH (16:43)
[2023-09-16] MEDS: Aspirin 81 MG Tab.Chew PO SCH (16:43)
[2023-09-16] MEDS: Rosuvastatin 10 MG Tab PO SCH (21:45)
[2023-09-17] MEDS: cloNIDine 0.1 MG Tab PO SCH ×3 (01:09→17:30)
[2023-09-17] MEDS: Heparin Sodium 5,000 Units/ML Vial SUBCUT SCH (01:09)
[2023-09-17 05:26] LABS: BASOPHILS ABSOLUTE AUTO 0.1 K/mm3 (0.0-0.2); BASOPHILS PERCENT AUTO 0.6 % (0.0-1.0); EOSINOPHILS ABSOLUTE AUTO 0.2 K/mm3 (0.0-0.4); EOSINOPHILS PERCENT AUTO 2.5 % (0.0-6.0); IMMATURE GRAN ABSOLUTE AUTO 0.03 K/mm3 (0.00-0.05); IMMATURE GRAN PERCENT AUTO 0.3 % (0.0-0.4); LYMPHOCYTES ABSOLUTE AUTO 4.4 K/mm3 (1.0-4.8); LYMPHOCYTES PERCENT AUTO 47.1 % (24.0-44.0); MEAN CORPUSCULAR HEMOGLOBIN 30.4 pg (28.0-32.0); MEAN CORPUSCULAR HGB CONC 35.3 g/dl (32.0-36.0); MEAN CORPUSCULAR VOLUME 86.1 fl (83.0-99.0); MEAN PLATELET VOLUME 9.7 fl (9.4-12.4); MONOCYTES ABSOLUTE AUTO 0.8 K/mm3 (0.0-0.8); MONOCYTES PERCENT AUTO 8.5 % (0.0-8.0); NEUTROPHILS ABSOLUTE AUTO 3.8 K/mm3 (1.8-7.7); PLATELET COUNT,PLT 184 K/mm3 (150-400); RED BLOOD CELL COUNT 3.95 M/mm3 (4.52-5.90); WHITE BLOOD CELL COUNT,WBC 9.25 K/mm3 (3.9-11.3)
[2023-09-17 05:42] LABS: CALCIUM 8.8 mg/dL (8.5-10.1); EST CRCL DRUG DOSING (CG) 72.2 mL/min; MAGNESIUM 1.9 mg/dL (1.8-2.4)
[2023-09-17] MEDS: Insulin Regular, Human 100 Units/ML 3 ML Vial SUBCUT SCH ×4 (07:22→21:38)
[2023-09-17] MEDS: Magnesium Oxide 400 MG Tab PO SCH (08:38)
[2023-09-17] MEDS: Clopidogrel 75 MG Tab PO SCH (08:39)
[2023-09-17] MEDS: Aspirin 81 MG Tab.Chew PO SCH (08:40)
[2023-09-17] MEDS: Rosuvastatin 10 MG Tab PO SCH (21:36)
[2023-09-18] MEDS: cloNIDine 0.1 MG Tab PO SCH ×2 (00:48→09:19)
[2023-09-18 06:20] LABS: BASOPHILS ABSOLUTE AUTO 0.1 K/mm3 (0.0-0.2); BASOPHILS PERCENT AUTO 0.6 % (0.0-1.0); EOSINOPHILS ABSOLUTE AUTO 0.2 K/mm3 (0.0-0.4); EOSINOPHILS PERCENT AUTO 2.8 % (0.0-6.0); HEMATOCRIT 36.2 % (42.0-52.0); HEMOGLOBIN 12.8 gm/dl (14.0-18.0); IMMATURE GRAN ABSOLUTE AUTO 0.04 K/mm3 (0.00-0.05); IMMATURE GRAN PERCENT AUTO 0.5 % (0.0-0.4); LYMPHOCYTES ABSOLUTE AUTO 3.6 K/mm3 (1.0-4.8); LYMPHOCYTES PERCENT AUTO 42.3 % (24.0-44.0); MEAN CORPUSCULAR HEMOGLOBIN 30.3 pg (28.0-32.0); MEAN CORPUSCULAR HGB CONC 35.4 g/dl (32.0-36.0); MEAN CORPUSCULAR VOLUME 85.8 fl (83.0-99.0); MONOCYTES ABSOLUTE AUTO 0.6 K/mm3 (0.0-0.8); MONOCYTES PERCENT AUTO 7.3 % (0.0-8.0); NEUTROPHILS PERCENT AUTO 46.5 % (41.0-71.0); PLATELET COUNT,PLT 189 K/mm3 (150-400); RED BLOOD CELL COUNT 4.22 M/mm3 (4.52-5.90); WHITE BLOOD CELL COUNT,WBC 8.61 K/mm3 (3.9-11.3)
[2023-09-18 06:36] LABS: ANION GAP 13.1 (5-15); CALCIUM 9.2 mg/dL (8.5-10.1); EST CRCL DRUG DOSING (CG) 72.2 mL/min; MAGNESIUM 1.8 mg/dL (1.8-2.4); POTASSIUM,K 4.1 mEq/L (3.5-5.1)
[2023-09-18] MEDS: Insulin Regular, Human 100 Units/ML 3 ML Vial SUBCUT SCH ×4 (09:18→21:05)
[2023-09-18] MEDS: Clopidogrel 75 MG Tab PO SCH (09:19)
[2023-09-18] MEDS: Magnesium Oxide 400 MG Tab PO SCH (09:19)
[2023-09-18] MEDS: Aspirin 81 MG Tab.Chew PO SCH (09:19)
[2023-09-18] MEDS: Rosuvastatin 10 MG Tab PO SCH (21:05)
[2023-09-19 05:49] LABS: ANION GAP 13.2 (5-15); CALCIUM 9.5 mg/dL (8.5-10.1); EST CRCL DRUG DOSING (CG) 72.2 mL/min; POTASSIUM,K 4.2 mEq/L (3.5-5.1)
[2023-09-19 05:54] LABS: BASOPHILS ABSOLUTE AUTO 0.1 K/mm3 (0.0-0.2); BASOPHILS PERCENT AUTO 0.6 % (0.0-1.0); EOSINOPHILS ABSOLUTE AUTO 0.3 K/mm3 (0.0-0.4); EOSINOPHILS PERCENT AUTO 2.9 % (0.0-6.0); HEMATOCRIT 37.1 % (42.0-52.0); HEMOGLOBIN 13.2 gm/dl (14.0-18.0); IMMATURE GRAN ABSOLUTE AUTO 0.04 K/mm3 (0.00-0.05); IMMATURE GRAN PERCENT AUTO 0.4 % (0.0-0.4); LYMPHOCYTES ABSOLUTE AUTO 3.8 K/mm3 (1.0-4.8); LYMPHOCYTES PERCENT AUTO 40.6 % (24.0-44.0); MEAN CORPUSCULAR HEMOGLOBIN 30.2 pg (28.0-32.0); MEAN CORPUSCULAR HGB CONC 35.6 g/dl (32.0-36.0); MEAN CORPUSCULAR VOLUME 84.9 fl (83.0-99.0); MONOCYTES ABSOLUTE AUTO 0.7 K/mm3 (0.0-0.8); MONOCYTES PERCENT AUTO 7.5 % (0.0-8.0); NEUTROPHILS ABSOLUTE AUTO 4.4 K/mm3 (1.8-7.7); PLATELET COUNT,PLT 209 K/mm3 (150-400); RED BLOOD CELL COUNT 4.37 M/mm3 (4.52-5.90); WHITE BLOOD CELL COUNT,WBC 9.26 K/mm3 (3.9-11.3)
[2023-09-19] MEDS: Insulin Regular, Human 100 Units/ML 3 ML Vial SUBCUT SCH ×2 (07:44→11:16)
[2023-09-19] MEDS: Magnesium Oxide 400 MG Tab PO SCH (08:00)
[2023-09-19] MEDS: Clopidogrel 75 MG Tab PO SCH (08:00)
[2023-09-19] MEDS: amLODIPine 5 MG Tab PO SCH (08:00)
[2023-09-19] MEDS: Aspirin 81 MG Tab.Chew PO SCH (08:00)
[2023-09-19] MEDS: Enoxaparin 40 MG/0.4 ML Syringe SUBCUT SCH (08:00)
[2023-09-19] MEDS ORDERED: Insulin Glargine,Human Rec. Analog 100 Units/ML 3 ML Pen SUBCUT SCH ×2 (09:00→21:00)
[2023-09-19] MEDS: Insulin Lispro 100 Unit/ML 3 ML KwikPen SUBCUT SCH ×2 (17:25→20:39)
[2023-09-19] MEDS: Rosuvastatin 10 MG Tab PO SCH (20:38)
[2023-09-20 06:05] LABS: BASOPHILS ABSOLUTE AUTO 0.1 K/mm3 (0.0-0.2); BASOPHILS PERCENT AUTO 0.8 % (0.0-1.0); EOSINOPHILS ABSOLUTE AUTO 0.3 K/mm3 (0.0-0.4); EOSINOPHILS PERCENT AUTO 2.6 % (0.0-6.0); HEMATOCRIT 36.7 % (42.0-52.0); HEMOGLOBIN 13.1 gm/dl (14.0-18.0); IMMATURE GRAN ABSOLUTE AUTO 0.08 K/mm3 (0.00-0.05); IMMATURE GRAN PERCENT AUTO 0.8 % (0.0-0.4); LYMPHOCYTES ABSOLUTE AUTO 3.8 K/mm3 (1.0-4.8); LYMPHOCYTES PERCENT AUTO 37.5 % (24.0-44.0); MEAN CORPUSCULAR HEMOGLOBIN 29.6 pg (28.0-32.0); MEAN CORPUSCULAR HGB CONC 35.7 g/dl (32.0-36.0); MEAN PLATELET VOLUME 9.8 fl (9.4-12.4); MONOCYTES ABSOLUTE AUTO 0.9 K/mm3 (0.0-0.8); MONOCYTES PERCENT AUTO 8.5 % (0.0-8.0); NEUTROPHILS PERCENT AUTO 49.8 % (41.0-71.0); PLATELET COUNT,PLT 227 K/mm3 (150-400); RED BLOOD CELL COUNT 4.42 M/mm3 (4.52-5.90); WHITE BLOOD CELL COUNT,WBC 9.99 K/mm3 (3.9-11.3)
[2023-09-20 06:24] LABS: ANION GAP 13.4 (5-15); CALCIUM 9.2 mg/dL (8.5-10.1); EST CRCL DRUG DOSING (CG) 72.2 mL/min; POTASSIUM,K 4.4 mEq/L (3.5-5.1)
[2023-09-20] MEDS: Clopidogrel 75 MG Tab PO SCH (08:41)
[2023-09-20] MEDS: Magnesium Oxide 400 MG Tab PO SCH (08:41)
[2023-09-20] MEDS: amLODIPine 5 MG Tab PO SCH (08:41)
[2023-09-20] MEDS: Aspirin 81 MG Tab.Chew PO SCH (08:41)
[2023-09-20] MEDS: Enoxaparin 40 MG/0.4 ML Syringe SUBCUT SCH (08:42)
[2023-09-20] MEDS: Insulin Lispro 100 Unit/ML 3 ML KwikPen SUBCUT SCH ×4 (08:43→21:55)
[2023-09-20] MEDS: Insulin Glargine,Human Rec. Analog 100 Units/ML 3 ML Pen SUBCUT SCH ×2 (08:43→21:55)
[2023-09-20] MEDS: Rosuvastatin 10 MG Tab PO SCH (21:56)
[2023-09-21] MEDS: Aspirin 81 MG Tab.Chew PO SCH (08:12)
[2023-09-21] MEDS: amLODIPine 10 MG Tab PO SCH (08:12)
[2023-09-21] MEDS: Enoxaparin 40 MG/0.4 ML Syringe SUBCUT SCH (08:12)
[2023-09-21] MEDS: Magnesium Oxide 400 MG Tab PO SCH (08:12)
[2023-09-21] MEDS: Clopidogrel 75 MG Tab PO SCH (08:12)
[2023-09-21] MEDS: Insulin Lispro 100 Unit/ML 3 ML KwikPen SUBCUT SCH ×4 (08:13→20:39)
[2023-09-21] MEDS: Insulin Glargine,Human Rec. Analog 100 Units/ML 3 ML Pen SUBCUT SCH ×2 (08:13→20:39)
[2023-09-21] MEDS: Rosuvastatin 10 MG Tab PO SCH (20:39)
[2023-09-22] MEDS: Insulin Lispro 100 Unit/ML 3 ML KwikPen SUBCUT SCH ×4 (07:26→20:21)
[2023-09-22] MEDS: Aspirin 81 MG Tab.Chew PO SCH (08:12)
[2023-09-22] MEDS: Clopidogrel 75 MG Tab PO SCH (08:12)
[2023-09-22] MEDS: amLODIPine 10 MG Tab PO SCH (08:12)
[2023-09-22] MEDS: Magnesium Oxide 400 MG Tab PO SCH (08:12)
[2023-09-22] MEDS: Insulin Glargine,Human Rec. Analog 100 Units/ML 3 ML Pen SUBCUT SCH (08:13)
[2023-09-22] MEDS: Enoxaparin 40 MG/0.4 ML Syringe SUBCUT SCH (08:14)
[2023-09-22] MEDS ORDERED: Insulin Glargine,Human Rec. Analog 100 Units/ML 3 ML Pen SUBCUT SCH ×2 (09:00→21:00)
[2023-09-22] MEDS: Rosuvastatin 10 MG Tab PO SCH (20:20)
[2023-09-23] MEDS: Insulin Lispro 100 Unit/ML 3 ML KwikPen SUBCUT SCH ×2 (06:35→11:32)
[2023-09-23] MEDS: Clopidogrel 75 MG Tab PO SCH (08:25)
[2023-09-23] MEDS: Enoxaparin 40 MG/0.4 ML Syringe SUBCUT SCH (08:25)
[2023-09-23] MEDS: Magnesium Oxide 400 MG Tab PO SCH (08:25)
[2023-09-23] MEDS: Aspirin 81 MG Tab.Chew PO SCH (08:26)
[2023-09-23] MEDS: amLODIPine 10 MG Tab PO SCH (08:26)
[2023-09-23] MEDS: Insulin Glargine,Human Rec. Analog 100 Units/ML 3 ML Pen SUBCUT SCH (08:27)
== END 2023-09-23 13:53 | DRG 65 ==
LOC: JD.ED 15:20 → JD.MS 17:13
PROVIDERS: ADMIT Internal Medicine; ATTEND Internal Medicine
DX: I63.9 Cerebral infarction, unspecified (principal); G81.91 Hemiplegia, unspecified affecting right dominant side; E87.6 Hypokalemia; R29.704 NIHSS score 4; E83.42 Hypomagnesemia; E78.00 Pure hypercholesterolemia, unspecified; E11.649 Type 2 diabetes mellitus with hypoglycemia without coma; E11.22 Type 2 diabetes mellitus with diabetic chronic kidney disease; I12.9 Hypertensive chronic kidney disease with stage 1 through stage 4 chronic kidney disease, or unspecified chronic kidney disease; N18.31 Chronic kidney disease, stage 3a; Z79.4 Long term (current) use of insulin; Z91.041 Radiographic dye allergy status; Z97.3 Presence of spectacles and contact lenses; Z90.49 Acquired absence of other specified parts of digestive tract; Z11.52 Encounter for screening for COVID-19
CPT/HCPCS: 36415; 70450; 70450-26; 70551; 70551-26; 80048; 80053; 80061; 81001; 82947; 83036; 83735; 85025; 93005; 93010; 93307; 93880; 93880-26; 97110-GP; 97161-GP; 99222; 99233; 99239; 99284; 99285; A9270-GY; J1644; J1650; J1815; J1815-GY; J3475; J7030; J7120; U0002